=== PATIENT | female | born 1945 | race Caucasian/White ===

== ENCOUNTER 2025-07-28 14:15 | Outpatient (CLI) | payer MEDICARE, SELFPAY ==
--- NOTE | ~2025-07-28 | XR_ITS ---
EXAMINATION: XR knee LT min 4V, 07/28/2025 14:57 CDT HISTORY: PAIN, JOINT, KNEE, LEFT, MEDIAL PO COMPARISON: No comparisons available. Findings: No acute fracture or malalignment. No significant degenerative changes. Soft tissues unremarkable. Impression: No acute fracture or malalignment. Reviewed, dictated and finalized at location A. Impression: No acute fracture or malalignment.
--- OUTSIDE RECORDS SUMMARY | 2025-07-28 14:32 | XMS_ITS | Clinical Summary ---
Author Organization [facility] Address [address] [place] [address] Care Team Providers Care Biological Science Technician Fish Name Role Phone Almas Norris MD Primary Care Provider [phone] Allergies No known active allergies Medications atorvastatin (LIPITOR) 40 MG tablet Take 1 tablet (40 mg total) by mouth daily. 07/31/2023 Active carvedilol (COREG) 12.5 MG tablet Take 1 tablet (12.5 mg total) by mouth 2 (two) times daily. Active spironolactone (ALDACTONE) 25 MG tablet Take 1 tablet (25 mg total) by mouth daily. 08/21/2023 Active valsartan (DIOVAN) 80 MG tablet Take 1 tablet (80 mg total) by mouth daily. 08/21/2023 Active senna-docusate (SENOKOT-S) 8.6-50 MG tablet Take 1 tablet by mouth daily. 60 tablet 1 01/08/2024 Active HYDROcodone-acet aminophen (NORCO) 5-325 MG tabletIndication s:Acute Pain < 7 Day Supply,postop Take 1 tablet by mouth every 6 (six) hours as needed for Pain. Indications : Acute Pain < 7 Day Supply, postop 28 tablet 01/08/2024 Active Active Problems No known active problems Family History Medical History Relation Comments Cancer Brother 1 leukemia Heart Disease Brother 1 Heart Disease Brother 2 Heart Disease Brother 3 Heart Disease Mother Relation Status Comments Brother 1 Brother 2 Brother 3 Brother 4 Alive Brother 5 Alive Mother Social History Tobacco Use Types Packs/Day Years Used Date Smoking Tobacco: Former Cigarettes 1 5 1 970 - 1974 Smokeless Tobacco: Never Tobacco Cessation:Counseling Given: Not Answered Alcohol Use Standard Drinks/Week Comments Not Currently 0 (1 standard drink = 0.6 oz pur e alcohol) Comments No Sex and Gender Information Value Date Recorded Sex Assigned at Not on file Legal Sex Female 8:05 AM MARKING ROOM SUPERVISOR Gender Identity Not on file Sexual Orientation Not on file Last Filed Vital Signs Vital Sign Reading Time Taken Comments Blood Pressure 131/66 01/08/2024 2:17 PM MARKING ROOM SUPERVISOR Pulse 80 01/08/2024 2:17 PM MARKING ROOM SUPERVISOR Temperature 36.1 C (97 F) 01/08/2024 2:17 PM MARKING ROOM SUPERVISOR Respiratory Rate 12 01/08/2024 2:17 PM MARKING ROOM SUPERVISOR Oxygen Saturation 96% 01/08/2024 2:17 PM MARKING ROOM SUPERVISOR Inhaled Oxygen Concentration - - Weight 57.2 kg (126 lb 1.7 oz) 01/08/2024 6:30 A M MARKING ROOM SUPERVISOR Height 149.9 cm (4' 11) 01/08/2024 6:30 AM MARKING ROOM SUPERVISOR Body Mass Index 25.47 01/08/2024 6:30 AM MARKING ROOM SUPERVISOR Plan of Treatment Health Maintenance Due Date Last Done Comments Zoster Vaccines (1 of 2) 02/07/1994 Pneumococcal Vaccine: 50+ Ye ars (2 of 2 - PCV) 02/22/2008 02/21/2007 Annual Medicare Wellness Visit 02/07/2009 Dexa Scan (General) 02/07/2009 RSV Immunization or 60+ Years (1 - 1-dose 75+ series) 02/07/2019 DTaP, Tdap and Td Vaccines ( 2 - Td or Tdap) 07/21/2022 07/21/2012 COVID-19 Vaccine (1 - 2023-2 5 season) 2025 Meningococcal B Vaccine Aged Out No l onger eligible based on patient's age to complete this topic Meningococcal Vaccine Aged Out No kari rei eligible based on patient's age to complete this topic RSV Immunizations Under 20 Months Aged Out No longer eligible based on patient's age to complete this topic Insurance [facility] Care Teams Biological Science Technician Fish Relationship Specialty Start Date End Date Almas Norris MD PCP - General INTERNAL MEDICINE 09/26/23
--- OUTSIDE RECORDS SUMMARY | 2025-07-28 14:32 | XMS_ITS | Clinical Summary ---
Author Organization [facility] [address] [place] [id number] Care Team Providers Care Garage Worker Name Role Phone Almas Norris MD Primary Care Provider [phone] Allergies No known active allergies Medications potassium citrate ER (UROCIT-K) 10 mEq (1,080 mg) CR tablet Take 1 tablet (10 mEq total) by mouth daily Active empagliflozin (JARDIANCE) 10 mg tabletIndication s:Heart Failure Take 1 tablet (10 mg total) by mouth daily 90 tablet 3 02/27/2025 Active carvediloL (COREG) 12.5 mg tablet Take 1 tablet (12.5 mg total) by mouth 2 (two) times a day with meals 180 tablet 3 02/27/2025 Active atorvastatin (LIPITOR) 40 mg tablet Take 1 tablet (40 mg total) by mouth daily 90 tablet 3 02/27/2025 Active furosemide (LASIX) 20 mg tablet Take 1 tablet (20 mg total) by mouth daily 90 tablet 3 03/18/2025 Active valsartan (DIOVAN) 80 mg tablet TAKE 1 TABLET BY MOUTH DAILY 90 tablet 3 05/15/2025 Active spironolactone (ALDACTONE) 25 mg tablet TAKE 1 TABLET BY MOUTH DAILY 90 tablet 3 05/15/2025 Active Active Problems Problem Noted Date Diagnosed Date Type 2 diabetes mellitus with chronic kidney dis ease 03/18/2025 History of colonic polyps 09/02/2024 Encounter for screening colonoscopy 09/02/2024 Dilated cardiomyopathy 01/01/2024 Abnormal stress test 11/27/2023 Chest pain 11/27/2023 Encounter for preoperative a ssessment for noncoronary cardiac surgery 10/31/2023 Claudication 12/08/2022 Atopic rhinitis 04/05/2014 Overview (02/23/2017): ALLERGIC RHINITIS NOS Essential hypertension 04/05/2014 Overview (02/23/2017): BENIGN HYPERTENSION Multiple-type hyperlipidemia 04/05/2014 Overview (02/23/2017): MIXED HYPERLIPIDEMIA Gastroesophageal reflux disease 04/05/2014 Overview (02/23/2017): ESOPHAGEAL REFLUX Congestive heart failure 04/05/2014 Overview (02/24/2017): CHF NOS Immunizations Immunization Administration Dates Next Due Influenza, Split 07/22/2011,08/09/2010 Influenza, Trivalent, IM (MDV) 07/29/2013 Pneumococcal Polysaccharide PPV23 02/21/2007 Tdap 07/21/2012 Surgical History Surgery Date Site/Laterality Comments CHOLECYSTECTOMY 2006 Cholecystectomy BREAST BIOPSY 11/20/2019 Left COLONOSCOPY 11/20/2004 - 11/19/2005 BACK SURGERY COLONOSCOPY 01/02/2025 Medical History Medical History Date Comments IBS (irritable bowel syndrome) HTN (hypertension) GERD (gastroesophageal reflux disease) Adenomatous colon polyp Cardiomyopathy HLD (hyperlipidemia) HFrEF (heart failure with reduced ejection fract ion) Spinal stenosis, lumbar Family History Medical History Relation Name Comments Coronary artery disease Brother 2 Artie nary artery disease; Leukemia Brother 2 Cancer -leukemi a; Car Accident Father MVA; Coronary artery disease Mother Artie nary artery disease, premature; Coronary artery disease Sister Artie nary artery disease; Diabetes type II Sister Diabetes -T ype 2; Relation Name Status Comments Brother 1 Alive Brother 2 Father Mother Sister Social History Tobacco Use Types Packs/Day Years Used Date Smoking Tobacco: Never Tobacco Cessation:Counseling Given: Not Answered Alcohol Use Standard Drinks/Week Comments No 0 (1 standard drink = 0.6 oz pur e alcohol) AUDIT-C Answer Date Recorded Q1: How often do you have a drink containing alcohol? Never 01/02/2025 Q2: How many drinks containi ng alcohol do you have on a typical day when you are drinking? Patient does not drink Frequency of Binge Drinking Not on file 12/21 Personal Safety Answer Date Recorded Have you ever been in or are you currently in a harmful physical or emotional relationship or is someone making you feel afraid or unsafe? Denies 01/02/2025 Comments Unknown Sex and Gender Information Value Date Recorded Sex Assigned at Not on file Legal Sex Female 11:59 PM ROCKET ENGINE MECHANIC Gender Identity Not on file Sexual Orientation Not on file Obstetrics History Para Term AB IAB SAB Ectopic Multiple Livin g Live Births 2 2 2 Date Outcome GA Total Labor Labor/12/23 Weight Sex Type Anes PTL Becky A1 A5 Name Clin Term Term Last Filed Vital Signs Vital Sign Reading Time Taken Comments Blood Pressure 149/83 03/18/2025 8:19 AM CDT Pulse 82 03/18/2025 8:19 AM CDT Temperature 36.6 C (97.8 F) 01/02/2025 9:56 AM ROCKET ENGINE MECHANIC Respiratory Rate 18 03/18/2025 8:19 AM CDT Oxygen Saturation 97% 01/02/2025 9:56 AM ROCKET ENGINE MECHANIC Inhaled Oxygen Concentration - - Weight 60.8 kg (134 lb) 03/18/2025 8:19 AM CDT Height 149.9 cm (4' 11) 03/18/2025 8:19 AM CDT Body Mass Index 27.06 03/18/2025 8:19 AM CDT Plan of Treatment Health Maintenance Due Date Last Done Comments Albumin Creatinine Ratio, Urine 1944 Depression Screening 1944 Osteoporosis Screening-Bone Density Scan 1944 Dilated Eye Exam 1944 Foot Exam 1944 Hepatitis B Screening 02/07/1962 Zoster Vaccine (1 of 2) 02/07/1994 Pneumococcal vaccine 65+ (2 of 2 - PCV) 02/22/2008 02/21/2007 Well Visit 65+ 02/07/2009 DTaP/Tdap/Td Vaccine (2 - Td or Tdap) 07/21/2022 07/21/2012 Hemoglobin A1C 07/16/2024 01/16/2024 Fall Risk Assessment 12/19/2024 12/19/2023 eGFR 07/01/2025 07/01/2024, 12/22, 12/01/2023 Influenza Vaccine (#1) 2025 , 07/29/2013, 07/22/2011, Additional history exists Lipid Panel 03/18/2026 03/18/2025, 12/22, 08/01/2016, Additional history exists Medical Devices Implanted Type Area Maintenance Mechanic Engine Device Identifier Shelf Expiration Date Model / Serial / Lot ActualMeds Angio-Seal Vip 6fr Closere Device [id number] - [id number] Implanted:Qty: 1 on 12/19/2023 by Taya Gilliam MD at [facility] Other - see comments ActualMeds 09/19/2024 [id number] / / [id number] Procedures Procedure Name Priority Date/Time Associated Diagnosis Comments LIPID PANEL Routine 03/18/2025 9:09 AM CDT Multiple-type hyperlipidemia EGFR Routine 07/01/2024 1:30 PM CDT Essential hypertension HEMOGLOBIN A1C Routine 01/16/2024 10:45 AM ROCKET ENGINE MECHANIC Diabetes mellitus type II, non insulin dependent (HCC) from Last 3 Months or Most Recently Relevant to Health Maintenance Results * Lipid panel (03/18/2025 9:09 AM CDT) Cholesterol 135 30 - 199 mg/dL Comment: Interpretive Data Ages < or = 19 years Acceptable: <170 mg/dL Borderline high: 170-199 mg/dL High: >or= 200 mg/dL Ages > or = 20 years Desirable: <200 mg/dL Borderline high: 200-239 mg/dL High: >or= 240 mg/dL Literature References: 1. Expert Panel on Integrated Guidelines for Cardiovascular Health and Risk Reduction in Children and Adolescents. Pediatrics 2011;128:S213 2. NCEP Expert Panel. Circulation 2004;110:227 Current Interpretive Data was last revised on 2018. Triglycerides 137 <=149 mg/dL [facility] [place]) Comment: Interpretive Data Ages < or = 9 years Acceptable: <75 mg/dL Borderline high: 75-99 mg/dL High: >or= 100 mg/dL Ages 10 to 20 years Acceptable: <90 mg/dL Borderline high: 90-129 mg/dL High: >or= 130 mg/dL Ages > or = 20 years Desirable: <150 mg/dL Borderline high: 150-199 mg/dL High: 200-499 mg/dL Very high: >or= 499 mg/dL Literature References: 1. Expert Panel on Integrated Guidelines for Cardiovascular Health and Risk Reduction in Children and Adolescents. Pediatrics 2011;128:S213 2. NCEP Expert Panel. Circulation 2004;110:227 Current Interpretive Data was last revised on 2018. HDL 44 >=40 mg/dL [facility] [place]) Comment: Interpretive Data Ages < or = 19 years Acceptable: >45 mg/dL Borderline low: 40-45 mg/dL Low: <40 mg/dL Ages > or = 20 years Desirable: >or= 60 mg/dL Low: <40 mg/dL Literature References: 1. Expert Panel on Integrated Guidelines for Cardiovascular Health and Risk Reduction in Children and Adolescents. Pediatrics 2011;128:S213 2. NCEP Expert Panel. Circulation 2004;110:227 Current Interpretive Data was last revised on 2018. LDL, calculated 67 <=129 mg/dL [facility]) Comment: Interpretive Data Ages < or = 19 years Acceptable: <110 mg/dL Borderline high: 110-129 mg/dL High: >or= 130 mg/dL Ages > or = 20 years Optimal: <100 mg/dL Near optimal: 100-129 mg/dL Borderline high: 130-159 mg/dL High: >160 mg/dL Calculated using the [place] LDL-C estimating equation. This equation was implemented on 2024. Prior to this date LDL-C was estimated using the Friedewald equation. Literature References: 1. Expert Panel on Integrated Guidelines for Cardiovascular Health and Risk Reduction in Children and Adolescents. Pediatrics 2011;128:S213 2. NCEP Expert Panel. Circulation 2004;110:227 3. [place] Xie al. ROMEO Cardiol. 2020 March 20;5(5):540-548. doi: 10.1001/[email or web address] Current Interpretive Data was last revised on 2024. Non-HDL Cholesterol 91 mg/dL [facility] ([place]) Comment: Interpretive Data Ages < or = 19 years Acceptable: <120 mg/dL Borderline high: 120-144 mg/dL High: >145 mg/dL Ages > or = 20 years When triglycerides are >200 mg/dL, Non-HDL cholesterol is a secondary target of therapy with treatment goals that are 30 mg/dL greater than the LDL cholesterol target. Literature References: 1. Expert Panel on Integrated Guidelines for Cardiovascular Health and Risk Reduction in Children and Adolescents. Pediatrics 2011;128:S213 2. NCEP Expert Panel. Circulation 2004;110:227 Current Interpretive Data was last revised on 2018. Chol/HDL ratio 3 [facility] ([place]) Blood 03/18/2025 9:09 AM CDT 03/18/2025 9:18 AM CDT Sophie Ackerman NP LAB BLOOD ORDERABLES nal Result [facility] ([place]) 1 [facility] [place] [address] * (ABNORMAL) eGFR (07/01/2024 1:30 PM CDT) eGFR 59(L) >=60 mL/min/1. 73 m2 Comment: Interpretive Data Reference Interval Normal >/= 90 mL/min/1.73m2 Mildly decreased* 60 - 89 mL/min/1.73m2 Mildly to moderately decreased 45 - 59 mL/min/1.73m2 Moderately to severely decreased 30 - 44 mL/min/1.73m2 Severely decreased 15 - 29 mL/min/1.73m2 Kidney Failure < 15 mL/min/1.73m2 *Relative to young adult level Estimated glomerular filtration rate is determined by the 2020 CKD-EPI equation recommended by the National Kidney Foundation (A Unifying Approach to GFR Estimation: Recommendations of the NKF-ASK Task Force on Reassessing the Inclusion of Race in Diagnosing Kidney Disease, JASN 2020). The CKD-EPI equation should not be used for patients with unstable renal function and has not been validated in children and those over 70. Current interpretive data was last reviewed 2021. Blood 07/01/2024 1:30 PM CDT 07/01/2024 2:00 PM CDT Geremias Matos MD LAB BLOOD ORDERABLES Final Resu lt [facility] ([place]) [facility] [place] [address] * (ABNORMAL) Hemoglobin A1c (01/16/2024 10:45 AM ROCKET ENGINE MECHANIC) Hgb A1C 5.7(H) 4.0 - 5.6 % [facility]) Estimated Average Glucose 117 mg/dL [facility] Comment: The ADA recommends reporting an estimated Average Glucose (eAG) with all Hemoglobin A1c results using the equation derived from a study of 507 normal and diabetic adults. Minority populations were underrepresented and children were not included. (Diabetes Care 31:9886-0407, 2008). The eAG is not equivalent to a fasting glucose. Blood 01/16/2024 10:4 5 AM ROCKET ENGINE MECHANIC 01/16/2024 11:19 AM ROCKET ENGINE MECHANIC Geremias Matos MD LAB BLOOD ORDERABLES Final Resu lt [facility] ([place]) [address] [facility] [place] [address] from Last 3 Months or Most Recently Relevant to Health Maintenance Insurance [facility] MEDICARE ADVANTAGE [facility] MED[employer]V[facility]AGE Advance Directives For more information, please contact: [phone] * Full Code (Latest Code Status on File) Date Activated Date Inactivated Comments 01/02/2025 7:19 AM 01/02/2025 2:12 PM * Full Code Date Activated Date Inactivated Comments 01/02/2025 7:19 AM 01/02/2025 7:19 AM * Full Code Date Activated Date Inactivated Comments 12/19/2023 10:11 AM 12/19/2023 5:10 PM Care Teams Garage Worker Relationship Specialty Start Date End Date Almas Norris MD PCP - General Internal Medicine 06/06/22
== END 2025-07-28 14:16 | disposition home or self-care (01) ==
PROVIDERS: PCP Internal Medicine; Visit Provider Internal Medicine
DX: M25.562 Pain in left knee (principal)
CPT/HCPCS: 73564

== ENCOUNTER 2025-08-22 08:14 | Outpatient (CLI) | payer MEDICARE, SELFPAY ==
--- NOTE | ~2025-08-22 | US_ITS ---
EXAMINATION: US soft tissue LE DATE: 08/22/2025 09:10 INDICATION: Left knee pain TECHNIQUE: Multiple grayscale ultrasound images of the region of concern posterior to the left knee were obtained. COMPARISON: None FINDINGS: Popliteal artery and vein are normal in caliber. No Ferreira's cyst or other abnormal masses at the left popliteal fossa. IMPRESSION: 1. No Ferreira's cyst or other evident abnormality at the left popliteal fossa. Reviewed, dictated and finalized at location A.
--- OUTSIDE RECORDS SUMMARY | 2025-08-22 08:22 | XMS_ITS | Data Portability ---
Author Organization [place] [facility] [place], Main Office Address [address] [place] [address] Assessment Encounter Date Assessment Date Assessment LastModified by Organization Details LastModified Time 05/19/2023 05/19/2023 Diagnosis in the assessment plan have been discussed she needs a surgical consultation I will arrange for that follow-up with me in 4 months Not available 05/20/2023 14:22:57 07/07/2023 07/07/2023 Normal sinus rhythm bundle left bundle-branch block blood work reviewed clear cleared for cataract surgery keep regular follow-up [email or web address] Not available 07/07/2023 15:31:35 10/16/2023 10/16/2023 EKG sinus rhythm with LBBB She is seeing cardiology next week From my standpoint is lungs are blood work is fine she is medically optimized [email or web address] Not available 10/16/2023 23:04:05 Plan of Treatment Reminders Order Date Submit Date Provider Last Modified By Organization Details Last Modified Time Details Appointments None recorded. Lab CBC w/ auto diff 2022 023 [facility] (Lab), [address] [place], [address], 3 13:54:04 lipid panel, serum 2022 023 [facility] (Lab), [address] [place], [address], 3 15:10:09 CMP, serum or plasma 2022 023 [facility] (Lab), [address] [place], [address], 15:10:06 Referral None recorded. Procedures None recorded. Surgeries None recorded. Imaging electrocard iogram 2022 023 [email or web address] [facility] [address], [place], [address], 17:59:46 electrocard iogram 2022 023 [email or web address] [facility] [address], [place], [address], 15:31:51 Medication Orders benzonatate 200 mg capsule 2022 023 CELESTE [facility], [facility] [address], [facility] [address], [place], [place], [id number], 15:31:53 Patient TargetsNo targets recorded. Patient InstructionsNo instructions recorded. Reason for Referral None Reported. Results Created Date Observation Date Name Description Value Unit Range Abnormal Flag Note LastModifiedBy Organization Detail LastModifiedTime 05/19/2005/19/2023 CBC/C OMPLE TE BLD COUNT W/DIF F white blood cells 5.4 x10'3 /uL 4.2-10 .8 Not Available [facility] (Lab) [address] [place], [address], 05/19/2023 15:08:44 05/19/20 23 05/19/2023 CBC/C OMPLE TE BLD COUNT W/DIF F red blood cells 4.71 x10'6 /uL 3.80-5 .20 Not Available [facility] (Lab) [address] [place], [address], 05/19/2023 15:08:44 05/19/20 23 05/19/2023 CBC/C OMPLE TE BLD COUNT W/DIF F hemoglobin 14.2 g/dL 12.0-1 5.6 Not Available [facility] (Lab) [address] [place], [address], 05/19/2023 15:08:44 05/19/20 23 05/19/2023 CBC/C OMPLE TE BLD COUNT W/DIF F hematocrit 44.3 % 35.7-4 5.7 Not Available [facility] (Lab) [address] [place], [address], 05/19/2023 15:08:44 05/19/20 23 05/19/2023 CBC/C OMPLE TE BLD COUNT W/DIF F mean red cell volume 94.1 fL 82.0-9 9.0 Not Available [facility] (Lab) [address] [place], [address], 05/19/2023 15:08:44 05/19/20 23 05/19/2023 CBC/C OMPLE TE BLD COUNT W/DIF F mean red cell hemoglobin 30.1 pg 27.0-3 3.0 Not Available [facility] (Lab) [address] [place], [address], 05/19/2023 15:08:44 05/19/20 23 05/19/2023 CBC/C OMPLE TE BLD COUNT W/DIF F mean RBC HGB concentratio n 32.1 g/dL 31.0-3 6.0 Not Available [facility] (Lab) [address] [place], [address], 05/19/2023 15:08:44 05/19/20 23 05/19/2023 CBC/C OMPLE TE BLD COUNT W/DIF F red cell distribution width 12.9 % 11.8-1 5.5 Not Available [facility] (Lab) [address] [place], [address], 05/19/2023 15:08:44 05/19/20 23 05/19/2023 CBC/C OMPLE TE BLD COUNT W/DIF F platelets 229 x10'3 /uL 150-40 0 Not Available [facility] (Lab) [address] [place], [address], 05/19/2023 15:08:44 05/19/20 23 05/19/2023 CBC/C OMPLE TE BLD COUNT W/DIF F mean platelet volume 10.7 fL 9.0-12 .4 Not Available [facility] (Lab) [address] [place], [address], 05/19/2023 15:08:44 05/19/20 23 05/19/2023 CBC/C OMPLE TE BLD COUNT W/DIF F neutrophils 62.8 % 39.0-7 2.0 Not Available [facility] (Lab) [address] [place], [address], 05/19/2023 15:08:44 05/19/20 23 05/19/2023 CBC/C OMPLE TE BLD COUNT W/DIF F lymphocytes 26.1 % 16.0-4 7.0 Not Available [facility] (Lab) [address] [place], [address], 05/19/2023 15:08:44 05/19/20 23 05/19/2023 CBC/C OMPLE TE BLD COUNT W/DIF F monocytes 6.8 % 5.0-12 .0 Not Available [facility] (Lab) [address] [place], [address], 05/19/2023 15:08:44 05/19/20 23 05/19/2023 CBC/C OMPLE TE BLD COUNT W/DIF F eosinophils 2.6 % 1.0-7. 0 Not Available [facility] (Lab) [address] [place], [address], 05/19/2023 15:08:44 05/19/20 23 05/19/2023 CBC/C OMPLE TE BLD COUNT W/DIF F basophils 1.1 % 0.0-2. 0 Not Available [facility] (Lab) [address] [place], [address], 05/19/2023 15:08:44 05/19/20 23 05/19/2023 CBC/C OMPLE TE BLD COUNT W/DIF F immature granulocytes 0.6 % 0.00-0 .50 high Not Available [facility] (Lab) [address] [place], [address], 05/19/2023 15:08:44 05/19/20 23 05/19/2023 CBC/C OMPLE TE BLD COUNT W/DIF F neutrophils, absolute count 3.42 x10'3 /uL 1.5-8. 0 Not Available [facility] (Lab) [address] [place], [address], 05/19/2023 15:08:44 05/19/20 23 05/19/2023 CBC/C OMPLE TE BLD COUNT W/DIF F lymphocytes, absolute count 1.42 x10'3 /uL 1.07-3 .43 Not Available [facility] (Lab) [address] [place], [address], 05/19/2023 15:08:44 05/19/20 23 05/19/2023 CBC/C OMPLE TE BLD COUNT W/DIF F monocytes, absolute count 0.37 x10'3 /uL 0.29-0 .99 Not Available [facility] (Lab) [address] [place], [address], 05/19/2023 15:08:44 05/19/20 23 05/19/2023 CBC/C OMPLE TE BLD COUNT W/DIF F eosinophils, absolute count 0.14 x10'3 /uL 0.02-0 .53 Not Available [facility] (Lab) [address] [place], [address], 05/19/2023 15:08:44 05/19/20 23 05/19/2023 CBC/C OMPLE TE BLD COUNT W/DIF F basophils, absolute count 0.06 x10'3 /uL 0.01-0 .08 Not Available [facility] (Lab) [address] [place], [address], 05/19/2023 15:08:44 05/19/20 23 05/19/2023 CBC/C OMPLE TE BLD COUNT W/DIF F immature granulocytes ,absolute 0.03 x10'3 /uL 0.00-0 .05 Not Available [facility] (Lab) [address] [place], [address], 05/19/2023 15:08:44 05/19/20 23 05/19/2023 CBC/C OMPLE TE BLD COUNT W/DIF F nucleated red blood cells 0.0 % -0 Not Available [facility] (Lab) [address] [place], [address], 05/19/2023 15:08:44 05/19/20 23 05/19/2023 CBC/C OMPLE TE BLD COUNT W/DIF F NRBC# 0.00 x10'3 /uL Not Available [facility] (Lab) [address] [place], [address], 05/19/2023 15:08:44 05/19/20 23 05/19/2023 COMPR EHENS KALIE METAB OLIC PANEL sodium 142 mmol/ L 137-14 5 Not Available [facility] (Lab) [address] [place], [address], 05/19/2023 16:19:25 05/19/20 23 05/19/2023 COMPR EHENS KALIE METAB OLIC PANEL potassium 4.6 mmol/ L 3.5-5. 1 Not Available [facility] (Lab) [address] [place], [address], 05/19/2023 16:19:25 05/19/20 23 05/19/2023 COMPR EHENS KALIE METAB OLIC PANEL chloride 104 mmol/ L 98-107 Not Available [facility] (Lab) [address] [place], [address], 05/19/2023 16:19:25 05/19/20 23 05/19/2023 COMPR EHENS KALIE METAB OLIC PANEL carbon dioxide 28 mmol/ L 22-30 Not Available [facility] (Lab) [address] [place], [address], 05/19/2023 16:19:25 05/19/20 23 05/19/2023 COMPR EHENS KALIE METAB OLIC PANEL anion gap 14.6 mmol/ L 14-22 Not Available [facility] (Lab) [address] [place], [address], 05/19/2023 16:19:25 05/19/20 23 05/19/2023 COMPR EHENS KALIE METAB OLIC PANEL glucose 95 mg/dL 70-99 Not Available [facility] (Lab) [address] [place], [address], 05/19/2023 16:19:25 05/19/20 23 05/19/2023 COMPR EHENS KALIE METAB OLIC PANEL BUN 25 mg/dL 8-19 high Not Available [facility] (Lab) [address] [place], [address], 05/19/2023 16:19:25 05/19/20 23 05/19/2023 COMPR EHENS KALIE METAB OLIC PANEL creatinine 0.94 mg/dL 0.66-1 .25 Not Available [facility] (Lab) [address] [place], [address], 05/19/2023 16:19:25 05/19/20 23 05/19/2023 COMPR EHENS KALIE METAB OLIC PANEL GFR 57 Refer ence Range : Robson ge GFR Healt hy Adult : >60 mL/mi n/1.7 3 m2 Chron ic Kidne y Disea se: 15-60 mL/mi n/1.7 3 m2 Kidne y Failu re: <15/m L/min /1.73 m2 www.n iddk. nih.g ov The MDRD study equat ion has not been valid ated in child ariana <18 years of age; pregn ant women ; the elder ly >85 years of age; or in some racia l or ethni c subgr oups, such as Hispa nics. Outsi de the valid ated julieta eters , estim ated GFR is less accur ate, requi ring clini jay judgm ent on a case- by-ca se basis . Clini jay inter preta tion for other races and ages must be made by the clini reece. The MDRD study equat ion has not been valid ated for the evalu ation of serum creat inine relat ed to nutri chantal l statu s or medic ation usage . For perso ns <18 years of age, a pedia tric GFR calcu lator is avail able on the [facility] websi te: https ://felisha w.kid young.o rg/pr ofess ional s/kdo qi/gf r_cal culat or Not Available [facility] (Lab) [address] [place], [address], 05/19/2023 16:19:25 05/19/20 23 05/19/2023 COMPR EHENS KALIE METAB OLIC PANEL alkaline phosphatase 112 U/L 38-126 Not Available [facility] (Lab) [address] [place], [address], 05/19/2023 16:19:25 05/19/20 23 05/19/2023 COMPR EHENS KALIE METAB OLIC PANEL alanine aminotransfe rase 17 U/L 0-35 Not Available [facility] (Lab) [address] [place], [address], 05/19/2023 16:19:25 05/19/20 23 05/19/2023 COMPR EHENS KALIE METAB OLIC PANEL aspartate aminotransfe rase 23 U/L 15-37 Not Available [facility] (Lab) [address] [place], [address], 05/19/2023 16:19:25 05/19/20 23 05/19/2023 COMPR EHENS KALIE METAB OLIC PANEL bilirubin, total 0.70 mg/dL 0.20-1 .30 Not Available [facility] (Lab) [address] [place], [address], 05/19/2023 16:19:25 05/19/20 23 05/19/2023 COMPR EHENS KALIE METAB OLIC PANEL calcium 9.4 mg/dL 8.4-10 .2 Not Available [facility] (Lab) [address] [place], [address], 05/19/2023 16:19:25 05/19/20 23 05/19/2023 COMPR EHENS KALIE METAB OLIC PANEL total protein 6.7 g/dL 6.3-8. 2 Not Available [facility] (Lab) [address] [place], [address], 05/19/2023 16:19:25 05/19/20 23 05/19/2023 COMPR EHENS KALIE METAB OLIC PANEL albumin 4.0 g/dL 3.0-4. 4 Not Available [facility] (Lab) [address] [place], [address], 05/19/2023 16:19:25 05/19/20 23 05/19/2023 COMPR EHENS KALIE METAB OLIC PANEL globulin 2.7 g/dL 2.6-4. 2 Not Available [facility] (Lab) [address] [place], [address], 05/19/2023 16:19:25 05/19/20 23 05/19/2023 COMPR EHENS KALIE METAB OLIC PANEL A/G ratio 1.5 ratio 1.0-2. 0 Not Available [facility] (Lab) [address] [place], [address], 05/19/2023 16:19:25 05/19/20 23 05/19/2023 LIPID PANEL cholesterol 142 mg/dL 140-19 9 NIH JENA NSUS RECOM MENDA TION FOR LEONA STERO L: ADULT CHILD LOW RISK: <200 <170 BORDE RLINE : <200- 239 ----- HIGH RISK: >240 >200 Not Available [facility] (Lab) [address] [place], [address], 05/19/2023 16:19:29 05/19/20 23 05/19/2023 LIPID PANEL triglyceride s 100 mg/dL 0-150 NIH JENA NSUS REPOR T RECOM MENDA TION FOR TRIGL YCERI AUGUSTA: ADULT CHILD LOW RISK: <150 ----- BODER LINE: 150-1 99 ----- HIGH RISK: >200 ----- Not Available [facility] (Lab) [address] [place], [address], 05/19/2023 16:19:29 05/19/20 23 05/19/2023 LIPID PANEL HDL cholesterol 49 mg/dL 40- Not Available [facility] (Lab) [address] [place], [address], 05/19/2023 16:19:29 05/19/20 23 05/19/2023 LIPID PANEL LDL cholesterol, calculated 73 mg/dL 0-130 NIH JENA NSUS REPOR T RECOM MENDA TIONS FOR LDL: ADULT CHILD LOW RISK <130 <110 (OPTI MAL LDL) <100 ----- BORDE RLINE : 130-1 59 ----- HIGH RISK: >160 >130 A TRIGL YCERI DE RESUL T >400 INVAL IDATE S THE CALCU LATIO N FOR LDL FRACT IONAT ION - THE LDL RESUL T WILL NOT BE REPOR [place]. Not Available [facility] (Lab) [address] [place], [address], 05/19/2023 16:19:29 10/18/20 23 10/18/2023 CBC/C OMPLE TE BLD COUNT W/DIF F white blood cells 5.7 x10'3 /uL 4.2-10 .8 Not Available [facility] (Lab) [address] [place], [address], 10/18/2023 13:54:04 10/18/20 23 10/18/2023 CBC/C OMPLE TE BLD COUNT W/DIF F red blood cells 4.37 x10'6 /uL 3.80-5 .20 Not Available [facility] (Lab) [address] [place], [address], 10/18/2023 13:54:04 10/18/2010/18/2023 CBC/C OMPLE TE BLD COUNT W/DIF F hemoglobin 13.6 g/dL 12.0-1 5.6 Not Available [facility] (Lab) [address] [facility] [place], [address], 10/18/2023 13:54:04 10/18/20 23 10/18/2023 CBC/C OMPLE TE BLD COUNT W/DIF F hematocrit 41.9 % 35.7-4 5.7 Not Available [facility] (Lab) [address] [place], [address], 10/18/2023 13:54:04 10/18/2010/18/2023 CBC/C OMPLE TE BLD COUNT W/DIF F mean red cell volume 95.9 fL 82.0-9 9.0 Not Available [facility] (Lab) [address] [place], [address], 10/18/2023 13:54:04 10/18/20 23 10/18/2023 CBC/C OMPLE TE BLD COUNT W/DIF F mean red cell hemoglobin 31.1 pg 27.0-3 3.0 Not Available [facility] (Lab) [address] [place], [address], 10/18/2023 13:54:04 10/18/20 23 10/18/2023 CBC/C OMPLE TE BLD COUNT W/DIF F mean RBC HGB concentratio n 32.5 g/dL 31.0-3 6.0 Not Available [facility] (Lab) [address] [facility] [place], [address], 10/18/2023 13:54:04 10/18/20 23 10/18/2023 CBC/C OMPLE TE BLD COUNT W/DIF F red cell distribution width 12.8 % 11.8-1 5.5 Not Available [facility] (Lab) [address] [place], [address], 10/18/2023 13:54:04 10/18/20 23 10/18/2023 CBC/C OMPLE TE BLD COUNT W/DIF F platelets 213 x10'3 /uL 150-40 0 Not Available [facility] (Lab) [address] [facility] [place], [address], 10/18/2023 13:54:04 10/18/20 23 10/18/2023 CBC/C OMPLE TE BLD COUNT W/DIF F mean platelet volume 10.7 fL 9.0-12 .4 Not Available [facility] (Lab) [address] [place], [address], 10/18/2023 13:54:04 10/18/20 23 10/18/2023 CBC/C OMPLE TE BLD COUNT W/DIF F neutrophils 65.2 % 39.0-7 2.0 Not Available [facility] (Lab) [address] [place], [address], 10/18/2023 13:54:04 10/18/20 23 10/18/2023 CBC/C OMPLE TE BLD COUNT W/DIF F lymphocytes 23.0 % 16.0-4 7.0 Not Available [facility] (Lab) [address] [place], [address], 10/18/2023 13:54:04 10/18/2010/18/2023 CBC/C OMPLE TE BLD COUNT W/DIF F monocytes 7.6 % 5.0-12 .0 Not Available [facility] (Lab) [address] [place], [address], 10/18/2023 13:54:04 10/18/2010/18/2023 CBC/C OMPLE TE BLD COUNT W/DIF F eosinophils 2.3 % 1.0-7. 0 Not Available [facility] (Lab) [address] [place], [address], 10/18/2023 13:54:04 10/18/2010/18/2023 CBC/C OMPLE TE BLD COUNT W/DIF F basophils 1.4 % 0.0-2. 0 Not Available [facility] (Lab) [address] [place], [address], 10/18/2023 13:54:04 10/18/2010/18/2023 CBC/C OMPLE TE BLD COUNT W/DIF F immature granulocytes 0.5 % 0.00-0 .50 Not Available [facility] (Lab) [address] [place], [address], 10/18/2023 13:54:04 10/18/2010/18/2023 CBC/C OMPLE TE BLD COUNT W/DIF F neutrophils, absolute count 3.69 x10'3 /uL 1.5-8. 0 Not Available [facility] (Lab) [address] [place], [address], 10/18/2023 13:54:04 10/18/20 23 10/18/2023 CBC/C OMPLE TE BLD COUNT W/DIF F lymphocytes, absolute count 1.30 x10'3 /uL 1.07-3 .43 Not Available [facility] (Lab) [address] [place], [address], 10/18/2023 13:54:04 10/18/2010/18/2023 CBC/C OMPLE TE BLD COUNT W/DIF F monocytes, absolute count 0.43 x10'3 /uL 0.29-0 .99 Not Available [facility] (Lab) [address] [place], [address], 10/18/2023 13:54:04 10/18/20 23 10/18/2023 CBC/C OMPLE TE BLD COUNT W/DIF F eosinophils, absolute count 0.13 x10'3 /uL 0.02-0 .53 Not Available [facility] (Lab) [address] [place], [address], 10/18/2023 13:54:04 10/18/2010/18/2023 CBC/C OMPLE TE BLD COUNT W/DIF F basophils, absolute count 0.08 x10'3 /uL 0.01-0 .08 Not Available [facility] (Lab) [address] [place], [address], 10/18/2023 13:54:04 10/18/2010/18/2023 CBC/C OMPLE TE BLD COUNT W/DIF F immature granulocytes ,absolute 0.03 x10'3 /uL 0.00-0 .05 Not Available [facility] (Lab) [address] [place], [address], 10/18/2023 13:54:04 10/18/20 23 10/18/2023 CBC/C OMPLE TE BLD COUNT W/DIF F nucleated red blood cells 0.0 % -0 Not Available [facility] (Lab) [address] [place], [address], 10/18/2023 13:54:04 10/18/20 23 10/18/2023 CBC/C OMPLE TE BLD COUNT W/DIF F NRBC# 0.00 x10'3 /uL Not Available [facility] (Lab) [address] [place], [address], 10/18/2023 13:54:04 10/18/20 23 10/18/2023 COMPR EHENS KALIE METAB OLIC PANEL sodium 142 mmol/ L 137-14 5 Not Available [facility] (Lab) [address] [place], [address], 10/18/2023 15:10:06 10/18/20 23 10/18/2023 COMPR EHENS KALIE METAB OLIC PANEL potassium 3.9 mmol/ L 3.5-5. 1 Not Available [facility] (Lab) [address] [place], [address], 10/18/2023 15:10:06 10/18/20 23 10/18/2023 COMPR EHENS KALIE METAB OLIC PANEL chloride 108 mmol/ L 98-107 high Not Available [facility] (Lab) [address] [place], [address], 10/18/2023 15:10:06 10/18/20 23 10/18/2023 COMPR EHENS KALIE METAB OLIC PANEL carbon dioxide 24 mmol/ L 22-30 Not Available [facility] (Lab) [address] [place], [address], 10/18/2023 15:10:06 10/18/20 23 10/18/2023 COMPR EHENS KALIE METAB OLIC PANEL anion gap 13.9 mmol/ L 14-22 low Not Available [facility] (Lab) [address] [place], [address], 10/18/2023 15:10:06 10/18/20 23 10/18/2023 COMPR EHENS KALIE METAB OLIC PANEL glucose 103 mg/dL 70-99 high Not Available [facility] (Lab) [address] [place], [address], 10/18/2023 15:10:06 10/18/20 23 10/18/2023 COMPR EHENS KALIE METAB OLIC PANEL BUN 27 mg/dL 8-19 high Not Available [facility] (Lab) [address] [place], [address], 10/18/2023 15:10:06 10/18/20 23 10/18/2023 COMPR EHENS KALIE METAB OLIC PANEL creatinine 1.21 mg/dL 0.66-1 .25 Not Available [facility] (Lab) [address] [place], [address], 10/18/2023 15:10:06 10/18/20 23 10/18/2023 COMPR EHENS KALIE METAB OLIC PANEL GFR 43 Refer ence Range : Robson ge GFR Healt hy Adult : >60 mL/mi n/1.7 3 m2 Chron ic Kidne y Disea se: 15-60 mL/mi n/1.7 3 m2 Kidne y Failu re: <15/m L/min /1.73 m2 www.n iddk. nih.g ov The MDRD study equat ion has not been valid ated in child ariana <18 years of age; pregn ant women ; the elder ly >85 years of age; or in some racia l or ethni c subgr oups, such as [facility] nics. Outsi de the valid ated julieta eters , estim ated GFR is less accur ate, requi ring clini jay judgm ent on a case- by-ca se basis . Clini jay inter preta tion for other races and ages must be made by the clini reece. The MDRD study equat ion has not been valid ated for the evalu ation of serum creat inine relat ed to nutri chantal l statu s or medic ation usage . For perso ns <18 years of age, a pedia tric GFR calcu lator is avail able on the [facility] websi te: https ://felisha w.jared vidal.o rg/pr ofess ional s/kdo qi/gf r_cal culat or Not Available [facility] (Lab) [address] [place], [address], 10/18/2023 15:10:06 10/18/20 23 10/18/2023 COMPR EHENS KALIE METAB OLIC PANEL alkaline phosphatase 102 U/L 38-126 Not Available [facility] (Lab) [address] [place], [address], 10/18/2023 15:10:06 10/18/20 23 10/18/2023 COMPR EHENS KALIE METAB OLIC PANEL alanine aminotransfe rase 11 U/L 0-35 Not Available [facility] (Lab) [address] [place], [address], 10/18/2023 15:10:06 10/18/20 23 10/18/2023 COMPR EHENS KALIE METAB OLIC PANEL aspartate aminotransfe rase 19 U/L 15-37 Not Available [facility] (Lab) [address] [place], [address], 10/18/2023 15:10:06 10/18/20 23 10/18/2023 COMPR EHENS KALIE METAB OLIC PANEL bilirubin, total 0.40 mg/dL 0.20-1 .30 Not Available [facility] (Lab) [address] [place], [address], 10/18/2023 15:10:06 10/18/20 23 10/18/2023 COMPR EHENS KALIE METAB OLIC PANEL calcium 9.6 mg/dL 8.4-10 .2 Not Available [facility] (Lab) [address] [place], [address], 10/18/2023 15:10:06 10/18/20 23 10/18/2023 COMPR EHENS KALIE METAB OLIC PANEL total protein 6.5 g/dL 6.3-8. 2 Not Available [facility] (Lab) [address] [place], [address], 10/18/2023 15:10:06 10/18/20 23 10/18/2023 COMPR EHENS KALIE METAB OLIC PANEL albumin 4.0 g/dL 3.0-4. 4 Not Available [facility] (Lab) [address] [place], [address], 10/18/2023 15:10:06 10/18/20 23 10/18/2023 COMPR EHENS KALIE METAB OLIC PANEL globulin 2.5 g/dL 2.6-4. 2 low Not Available [facility] (Lab) [address] [place], [address], 10/18/2023 15:10:06 10/18/20 23 10/18/2023 COMPR EHENS KALIE METAB OLIC PANEL A/G ratio 1.6 ratio 1.0-2. 0 Not Available [facility] (Lab) [address] [place], [address], 10/18/2023 15:10:06 10/18/20 23 10/18/2023 LIPID PANEL cholesterol 148 mg/dL 140-19 9 NIH JENA NSUS RECOM MENDA TION FOR LEONA STERO L: ADULT CHILD LOW RISK: <200 <170 BORDE RLINE : <200- 239 ----- HIGH RISK: >240 >200 Not Available [facility] (Lab) [address] [place], [address], 10/18/2023 15:10:09 10/18/20 23 10/18/2023 LIPID PANEL triglyceride s 168 mg/dL 0-150 high NIH JENA NSUS REPOR T RECOM MENDA TION FOR TRIGL YCERI AUGUSTA: ADULT CHILD LOW RISK: <150 ----- BODER LINE: 150-1 99 ----- HIGH RISK: >200 ----- Not Available [facility] (Lab) [address] [place], [address], 10/18/2023 15:10:09 10/18/20 23 10/18/2023 LIPID PANEL HDL cholesterol 47 mg/dL 40- Not Available [facility] (Lab) [address] [place], [address], 10/18/2023 15:10:09 10/18/20 23 10/18/2023 LIPID PANEL LDL cholesterol, calculated 67 mg/dL 0-130 NIH JENA NSUS REPOR T RECOM MENDA TIONS FOR LDL: ADULT CHILD LOW RISK <130 <110 (OPTI MAL LDL) <100 ----- BORDE RLINE : 130-1 59 ----- HIGH RISK: >160 >130 A TRIGL YCERI DE RESUL T >400 INVAL IDATE S THE CALCU LATIO N FOR LDL FRACT IONAT ION - THE LDL RESUL T WILL NOT BE REPOR [place]. Not Available [facility] (Lab) [address] [place], [address], 10/18/2023 15:10:09 05/18/20 23 01/06/2023 MRI, lumba r spine , w/o contr ast No observ ation record ed. [email or web address] Not Available 06/20 11:21:47 07/07/20 elect rocar diogr am No observ ation record ed. [facility] [address] [facility], [facility] [address], [place], [address], 07/07/2023 11:57:22 07/07/20 23 07/07/2023 elect rocar diogr am No observ ation record ed. BARCODE Not Available 2022 12:14:50 10/16/20 elect rocar diogr am No observ ation record ed. cyahl [facility] Randy [address] [facility] [address], [place], [address], 10/16/2023 17:49:22 10/16/20 23 10/16/2023 elect rocar diogr am No observ ation record ed. BARCODE [facility] [facility] [address], [place], [address], 10/16/2023 17:55:36 Result Notes None recorded. Problems Name Problem SNOMED Code Status Onset Date Resolution Date Notes Provider Name and Address Organization Details Recorded Time Pain in bilateral legs 5667094468022 9108 Active 2021 Not Available [facility] 3 07:04:59 Urinary incontinen ce 554579099 Active 2021 Not Available [facility] 3 07:04:59 Insomnia 709902032 Active 2021 Not Available [facility] 3 07:04:59 Congestive heart failure 14400886 Active 2021 Not Available [facility] 3 07:04:59 Essential hypertensi on 44388240 Active 2021 Not Available [facility] 3 07:04:59 Hyperlipid emia 26028717 Active 2021 Not Available [facility] 3 07:04:59 Spinal stenosis 67109035 Active 2022 Not Available [facility] 3 07:04:59 Cough 11759846 Active 2022 Not Available [facility] 3 07:04:59 Chronic cough 12526655 Active 2022 Not Available [facility] 3 07:04:59 Spinal stenosis of lumbar region 99670046 Active 2022 Not Available [facility] 3 07:04:59 Problem Notes None recorded. Procedures Surgical History Date Name Laterality Status Provider Name and Address Organization Details Recorded Time Breast Biopsy completed Not Available [facility] 01/19/2023 01:06:32 Imaging Results None recorded. Procedure Notes None recorded. Medical Equipment None Reported. Allergies No known drug allergies Medications Name Sig Start Date Stop Date Status Note LastModified by Organization Details LastModified Time atorvastati n 40 mg tablet Take 1 tablet every day by oral route. active Not Available Not Available No t Available carvedilol 12.5 mg tablet Take 1 tablet twice a day by oral route. active Not Available Not Available No t Available azithromyci n 250 mg tablet TAKE TWO TABLETS BY MOUTH ON DAY 1, THEN TAKE ONE TABLET ONE TIME DAILY ON DAYS 2-5 05/18 completed Not Available Not Available Not Available ibuprofen 800 mg tablet TAKE 1 TABLET THREE TIMES A DAY 05/19 completed Not Available Not Available Not Available benzonatate 200 mg capsule Take 1 capsule 3 times a day by oral route as needed. active Not Available Not Available No t Available valsartan 80 mg tablet Take 1 tablet every day by oral route. active Not Available Not Available No t Available penicillin V potassium 500 mg tablet TAKE 1 TABLET BY MOUTH FOUR TIMES DAILY UNTIL ALL TAKEN 05/18 completed Not Available Not Available Not Available acetaminoph en 300 mg-codeine 30 mg tablet TAKE 1 TABLET BY MOUTH EVERY 4 TO 6 HOURS NEEDED FOR PAIN 05/18 completed Not Available Not Available Not Available aspirin 81 mg tablet,wilmar yed release active Not Available Not Available Not Available spironolact one 25 mg tablet active Not Available Not Available Not Available ketorolac 0.5 % eye drops active Not Available Not Available Not Available prednisolon e acetate 1 % eye drops,suspe nsion active Not Available Not Available Not Available ciprofloxac in 0.3 % eye drops 10/16 completed Not Available Not Available Not Available naproxen sodium 550 mg tablet TAKE 1 TABLET BY MOUTH TWICE DAILY NEEDED FOR PAIN 05/18 completed Not Available Not Available Not Available zolpidem 5 mg tablet 05/18 completed Not Available Not Available Not Available furosemide 20 mg tablet active Not Available Not Available Not Available gabapentin 100 mg capsule TAKE 1 CAPSULE BY MOUTH AT BEDTIME active Not Available Not Available No t Available methylpredn isolone 4 mg tablets in a dose pack FOLLOW PACKAGE DIRECTION S 07/07 completed Not Available Not Available Not Available hydroxyzine pamoate 25 mg capsule TAKE 1 CAPSULE BY MOUTH EVERY DAY AT BEDTIME active Not Available Not Available No t Available potassium chloride ER 10 mEq tablet,exte nded release(par t/cryst) Take 1 tablet by oral route. active Not Available Not Available No t Available Asprin Ec Low Dose 07/07 completed Not Available Not Available Not Available ID NOW COVID-19 Test Kit TEST DIRECTED TODAY 06/29 /2022 completed Not Available Not Available Not Available Vitals Date Recorded Body mass index (BMI) Body height Heart rate Body temperature Body weight Systolic And Diastolic Provider Name and Address Organization Details Last Updated DateTime 3 26.3 kg/m2 149.86 cm 73 /min 97.2 [degF] 83324.0 1 g 118/74 mm[Hg] Not Available [facility] 3 01:07:00 Date Recorded Body height Body mass index (BMI) Body weight Body temperature Heart rate Oxygen saturation Oxygen saturation in Arterial blood by Pulse oximetry Systolic And Diastolic Provider Name and Address Organization Details Last Updated DateTime 3 149.86 cm 26.5 kg/m2 31349.6 g 97.7 [degF] 80 /min 95 % 95 % 128/70 mm[Hg] Kimber Cardoso MA [facility] [employer] 3 11:28:08 Date Recorded Body mass index (BMI) Body height Heart rate Body temperature Body weight Systolic And Diastolic Provider Name and Address Organization Details Last Updated DateTime 2 26.5 kg/m2 149.86 cm 77 /min 97.8 [degF] 17850.6 g 124/82 mm[Hg] Not Available [facility] 3 01:07:00 Date Recorded Body height Body mass index (BMI) Body weight Body temperature Heart rate Systolic And Diastolic Provider Name and Address Organization Details Last Updated DateTime 3 149.86 cm 24.4 kg/m2 11938.6 8 g 97.8 [degF] 84 /min 126/74 mm[Hg] Coretta Psator MA [facility] [employer] [facility] 3 17:03:28 Social History Question Answer Notes LastModified by Organization Details LastModified Time Tobacco Smoking Status Former Smoker Not Available [facility] 01/19/2023 01:06:23 Do You Have An Advance Directive? Yes [id number] Information not available 01/19/2023 Are You Blind Or Do You Have Difficulty Seeing? Yes Wears Glasses [id number] Information not available 01/19/2023 What Is Your Level Of Caffeine Consumption? Moderate [id number] Information not available 01/19/2023 In The 14 Days Before Symptom Onset, Have You Had Close Contact With A Laboratory-confi rmed COVID-19 While That Case Was Ill? No [id number] [id number] Information not available 01/19/2023 In The 14 Days Before Symptom Onset, Have You Had Close Contact With A Person Who Is Under Investigation For COVID-19 While That Person Was Ill? No [id number].[id number] [id number] Information not available 01/19/2023 Are You Deaf Or Do You Have Serious Difficulty Hearing? No [id number].[id number] [id number] Information not available 01/19/2023 What Type Of Diet Are You Following? REGULAR MIGRATION.0301 [id number] Information not available 01/19/2023 Have There Been Any Changes To Your Family Or Social Situation? No Information not available 07/07/2023 When Did You Quit Smoking? 16+yearssincelastc igarette MIGRATION.0301 [id number] Information not available 01/19/2023 Do You Use Insect Repellent Routinely? No Information not available 07/07/2023 Where Do You Live? SingleLevelHouse MIGRATION.0301 [id number] Information not available 01/19/2023 Do You Have A Medical Power Of Feather Maker? No [id number].0301 [id number] Information not available 01/19/2023 What Was The Date Of Your Most Recent Tobacco Screening? 10/16/2023 [email or web address] Information not available 10/16/2023 Do You Have Any Pets? No MIGRATION.0301 [id number] Information not available 01/19/2023 What Is Your Relationship Status? [id number].0301 [id number] Information not available 01/19/2023 Do You Use Your Seat Belt Or Car Seat Routinely? Yes [id number].0301 [id number] Information not available 01/19/2023 Do You Have Smoke And Carbon Monoxide Detectors In Your Home? Yes MIGRATION.0301 [id number] Information not available 01/19/2023 At What Age Did You Start Smoking Tobacco? 15 MIGRATION.0301 [id number] Information not available 01/19/2023 Are You Passively Exposed To Smoke? No MIGRATION.0301 [id number] Information not available 01/19/2023 Are There Any Smokers In Your House? No MIGRATION.0301 316661 Information not available 01/19/2023 Do You Use Sunscreen Routinely? Yes MIGRATION.0301 [id number] Information not available 01/19/2023 Have You Recently Traveled Abroad? No MIGRATION.0301 690890 Information not available 01/19/2023 Do You Have Difficulty Walking Or Climbing Stairs? No MIGRATION.0301 095512 Information not available 01/19/2023 Sex: Unknown Functional Status Question Answer Note LastModified by Organizat ion Details LastModified Time Do you use any illicit or recreational drugs? No Information not available 07/07/2023 What is your level of alcohol consumption? None [id number].[id number] [id number] Information not available 01/19/2023 Do you have transportation difficulties? No MIGRATION.[id number] 026 Information not available 01/19/2023 Are you able to walk independently without assistance or assistive devices? YESWOREST MIGRATION.[id number] 026 Information not available 01/19/2023 Do you have difficulty doing errands alone? No MIGRATION.[id number] 026 Information not available 01/19/2023 Are you able to care for yourself independently? Yes MIGRATION.[id number] 026 Information not available 01/19/2023 Do you have difficulty dressing, bathing, grooming, or toileting? No MIGRATION.[id number] 026 Information not available 01/19/2023 What is your exercise level? Occasional MIGRATION.[id number] 026 Information not available 01/19/2023 Mental Status None recorded. Family History Relationship Description Onset Age of this Age Resolved Age Notes LastModified by Organization Details LastModified Time Brother Family history of malignant neoplasm [id number] Not available 01/19/2023 01:06:34 Mother Heart disease [id number].105 [id number] Not available 01/19/2023 01:06:34 Medical History Condition Response BLINDNESS N NERVE DISEASE N RHEUMATIC FEVER N BLADDER PROBLEMS N KIDNEY STONES N MRSA N OTHER # 1 N POLIO N LUNG DISEASE/DISORDER N HISTORY OF DRUG ABUSE N RADIATION / CHEMOTHERAPY N COPD N Other # 2 N BLOOD DISEASES N EAR OR HEARING PROBLEMS N MUMPS N SHINGLES N DEPRESSION (INCLUDING POST ) N BOWEL PROBLEMS N STROKE/TIA N ULCERS N BENIGN PROSTATIC HYPERPLASIA N MEASLES N HYPOTENSION N MYOCARDIAL INFARCTION N OBESITY N GERD/NAUSEA N ANEURYSM N URINARY/BLADDER/KIDNEY PROBLEMS N CORONARY ARTERY DISEASE (CAD) N ADDICTION CONCERNS N ENDOMETRIOSIS N Impotence N USE OF BLOOD THINNERS N SKIN PROBLEMS N GASTROINTESTINAL DISORDER N PERIPHERAL VASCULAR DISEASE N MUSCLE,JOINT OR BONE PROBLEMS N GASTROINTESTINAL BLEEDING N BLOOD CLOTS N ASTHMA N CATARACTS N ERECTILE DYSFUNCTION N VARICOSITIES N GI PROBLEMS N Low Testosterone N INFERTILITY N AIDS/HIV N CHEMOTHERAPY / RADIATION N LIVER DISEASE N MALE HYPOGONADISM N HYPERTENSION Y Deficiency N TOURETTE'S N ANXIETY DISORDER N BLOOD TRANSFUSION N ANEMIA/BLOOD DISORDER N CHRONIC EAR INFECTIONS N BRONCHITIS N TUBERCULOSIS N GLAUCOMA N FOOT PROBLEM N DIVERTICULITIS N CHICKENPOX N SLEEP APNEA N INFECTIOUS DISEASE N HEART ARRHYTHMIA N PROSTATE N INSOMNIA N HIGH CHOLESTEROL / HYPERLIPIDEMIA Y HYPERTHYROIDISM N EYE PROBLEMS N EDEMA N CHRONIC PAIN SYNDROME N HYPOTHYROIDISM N CAROTID BLOCKAGE N CONSTIPATION N BACK / NECK PROBLEMS N HAVE YOU BEEN HOSPITALIZED OR SEEN IN THE MEDICAL CENTER IN THE PAST YEAR ? N ATHEROSCLEROSIS N BREAST PROBLEMS Y DIALYSIS N ECZEMA N OSTEOPOROSIS N ARTHRITIS Y APPENDICITIS N DIABETES, TYPE N BAD TEETH N ENT N HEARTBURN / REFLUX Y AUTISM SPECTRUM DISORDER (ASD) N HEPATITIS / LIVER DISEASE N GOUT N SLEEP DISORDER N ALZHEIMER'S DISEASE N Brain Problems N HERPES N DEMENTIA N HEADACHES/MIGRAINES N SEIZURES/EPILEPSY N VASCULAR DISEASE N PACEMAKER N Blood Disorder N DIZZINESS N HEART DISEASE/HEART PROBLEMS Y KIDNEY DISEASE N MULTIPLE SCLEROSIS N CARDIAC ARRHYTHMIA N CANCER: SPECIFY N ATRIAL FIBRILLATION N Gall Stones N PULMONARY EMBOLISM N AUTOIMMUNE DISEASE N Gynecological HistoryNo gynecological history recorded. Obstetrics History GPAL:G 0 P 0 0 0 0 Past Encounters Encounter ID Performer Location Encounter Start Date Encounter Closed Date Diagnosis/Indication Diagnosis SNOMED-CT Code Diagnosis ICD10 Code Diagnosis IMO Codes Diagnosis Note [id number] Almas Norris MD [facility] Internal Med [facility] [address] [address] 05/18/2022 00:00:00 06/04/2022 12:00:23 [id number] Almas Norris MD [facility] Internal Med [facility] [address] [address] 09/14/2022 00:00:00 09/14/2022 22:16:35 [id number] Almas Norris MD [facility] Internal Med [facility] [address] [address] 01/04/2023 00:00:00 01/08/2023 15:44:23 [id number] Almas Norris MD [facility] Internal Med [address] [facility] [address] [place] [address] 05/19/2023 10:40:50 05/19/2023 12:15:02 Hyperlipidemia 49833710 E78.5 Essential hypertension 55445732 I10 Congestive heart failure 08102985 I50.9 Spinal randy nosis of lumbar region 11497250 M48.062 [id number] Almas Norris MD [facility] Internal Med [facility] [address] [facility] [address] [place] [address] 07/07/2023 11:15:31 07/07/2023 12:07:19 Chronic cough 93377269 R05.3 Pre-surger y evaluation 413147863 Z01.912 [id number] Almas Norris MD [facility] Internal Med [facility] [address] [facility] [address] [place] [address] 10/16/2023 15:30:19 10/16/2023 17:50:36 Essential hypertension 75546939 I10 Hyperlipidemia 80640599 E78.5 Spinal randy nosis of lumbar region 98486818 M48.062 Congestive heart failure 02100785 I50.9 Health Concerns Section Related Observation LastModified by Organization Detai ls LastModified Time None Recorded Concern Status LastModified by Organization Details LastModified Time None Recorded Advance Directives Directive Y: Payers Insurance Date Sequence Insurance Name Policy Number Policy Lyons Covered Member ID Lyons Member ID Guarantor Name 11/21/2023 1 [facility] (MEDICARE REPLACEMENT/A DVANTAGE - PPO) [id number] Ella Ann [id number] Ella Ann Notes Date Note Type Note Provider Name and Address Organization Details Recorded Time 3 text/html Spinal stenosis severe with pain but no bowel or bladder continence no numbnessHyperlipidemia she does try to watch her intake of red meatCHF no chest pain or shortness of breathHypertension no headache or dizziness Almas Norris MD [address], [facility] [address], [place], [address], [facility] [employer] 05/20/2023 14:23:31 3 text/html Cataract surgery Almas Norris MD [address] [facility], [facility] [address], [place], [address], [facility] 07/07/2023 15:31:54 3 text/html We do not have the official notice but she states that she is going surge on her back she has not had any chest pain or shortness of breath no bowel or bladder problem Almas Norris MD [address] [facility], [address], [place], [address], [facility] 10/16/2023 23:04:21 OBGyn Episode No OBEpisode recorded.
--- OUTSIDE RECORDS SUMMARY | 2025-08-22 08:22 | XMS_ITS | Clinical Summary ---
Author Organization [facility] Address [address] [place] [address] Care Team Providers Care Casual Shoe Inspector Name Role Phone Almas Norris MD Primary Care Provider [phone] Allergies No known active allergies Medications atorvastatin [...] Former Cigarettes 1 5 1 970 - 1975 Smokeless Tobacco: Never Tobacco Cessation:Counseling Given: Not Answered Alcohol Use Standard Drinks/Week Comments Not Currently 0 (1 standard drink = 0.6 oz pur e alcohol) Comments No Sex and Gender Information Value Date Recorded Sex Assigned at Not on file Legal Sex Female 8:05 AM HAND TIRE TRIMMER Gender Identity Not on file Sexual Orientation Not on file Last Filed Vital Signs Vital Sign Reading Time Taken Comments Blood Pressure 131/66 01/08/2024 2:17 PM HAND TIRE TRIMMER Pulse 80 01/08/2024 2:17 PM HAND TIRE TRIMMER Temperature 36.1 C (97 F) 01/08/2024 2:17 PM HAND TIRE TRIMMER Respiratory Rate 12 01/08/2024 2:17 PM HAND TIRE TRIMMER Oxygen Saturation 96% 01/08/2024 2:17 PM HAND TIRE TRIMMER Inhaled Oxygen Concentration - - Weight 57.2 kg (126 lb 1.7 oz) 01/08/2024 6:30 A M HAND TIRE TRIMMER Height 149.9 cm (4' 11) 01/08/2024 6:30 AM HAND TIRE TRIMMER Body Mass Index 25.47 01/08/2024 6:30 AM HAND TIRE TRIMMER Plan of Treatment Health Maintenance Due Date Last Done Comments Zoster Vaccines (1 of 2) 02/07/1994 Pneumococcal Vaccine: 50+ Years (2 of 2 - PCV) 02/22/2008 02/21/2007 Annual Medicare Wellness Visit 02/07/2009 Dexa Scan (General) 02/07/2009 RSV Immunization or 60+ Years (1 - 1-dose 75+ series) 02/07/2019 DTaP, Tdap and Td Vaccines ( 2 - Td or Tdap) 07/21/2022 07/21/2012 COVID-19 Vaccine (1 - 2023-2 5 season) 2025 Influenza Adult (#1) 2025 07/29/2013, 07/22/2011, 08/09/2010 Meningococcal B Vaccine Aged Out No l onger eligible based on patient's age to complete this topic Meningococcal Vaccine Aged Out No kari rei eligible based on patient's age to complete this topic RSV Immunizations Under 20 Months Aged Out No longer eligible b ased on patient's age to complete this topic Insurance Care Teams Casual Shoe Inspector Relationship Specialty Start Date End Date Almas Norris MD PCP - General INTERNAL MEDICINE 09/26/23
--- OUTSIDE RECORDS SUMMARY | 2025-08-22 08:23 | XMS_ITS | Clinical Summary ---
Author Organization [facility] Physician Office Building [address] [place] [address] Care Team Providers Care Barker Peeler Name Role Phone Almas Norris MD Primary Care Provider [phone] Allergies No known active allergies Medications potassium [...] on file Legal Sex Female 11:59 PM WEB CONTENT DEVELOPER Gender Identity Not on file Sexual Orientation [...] 36.6 C (97.8 F) 01/02/2025 9:56 AM WEB CONTENT DEVELOPER Respiratory Rate 18 03/18/2025 8:19 AM CDT Oxygen Saturation 97% 01/02/2025 9:56 AM WEB CONTENT DEVELOPER Inhaled Oxygen Concentration - - Weight 60.8 [...] history exists Medical Devices Implanted Type Area Protective Signal Superintendent Device Identifier Shelf Expiration Date Model / Serial / Lot [employer] Angio-Seal Vip 6fr Closere Device [id number] - [id number] Implanted:Qty: 1 on 12/19/2023 by Taya Gilliam MD at [facility] Other - see comments [employer] 09/19/2024 [id number] / / [id number] Procedures Procedure Name Priority Date/Time Associated Diagnosis Comments LIPID PANEL Routine 03/18/2025 9:09 AM CDT Multiple-type hyperlipidemia EGFR Routine 07/01/2024 1:30 PM CDT Essential hypertension HEMOGLOBIN A1C Routine 01/16/2024 10:45 AM WEB CONTENT DEVELOPER Diabetes mellitus type II, non insulin dependent [...] 2018. Triglycerides 137 <=149 mg/dL [facility] Comment: Interpretive Data Ages < or = [...] 2024. Non-HDL Cholesterol 91 mg/dL [facility] Comment: Interpretive Data Ages < or = [...] LAB BLOOD ORDERABLES nal Result [facility] 1 [facility] [place] [address] * (ABNORMAL) eGFR (07/01/2024 1:30 PM CDT) [...] BLOOD ORDERABLES Final Resu lt [facility] 1 [facility] [place] [address] * (ABNORMAL) Hemoglobin A1c (01/16/2024 10:45 AM WEB CONTENT DEVELOPER) Hgb A1C 5.7(H) 4.0 - 5.6 % [facility] Estimated Average Glucose 117 mg/dL [facility] Comment: The ADA recommends reporting an estimated Average Glucose (eAG) with all Hemoglobin A1c results using the equation derived from a study of 507 normal and diabetic adults. Minority populations were underrepresented and children were not included. (Diabetes Care 31:8970-9122, 2008). The eAG is not equivalent to a fasting glucose. Blood 01/16/2024 10:4 5 AM WEB CONTENT DEVELOPER 01/16/2024 11:19 AM WEB CONTENT DEVELOPER Geremias Matos MD LAB BLOOD ORDERABLES Final Resu lt [facility] 1 [facility] [place] [address] from Last 3 Months or Most Recently Relevant to Health Maintenance Insurance [facility] MEDICARE ADVANTAGE [facility] MEDICARE ADVANTAGE Advance Directives For more information, please contact: [phone] * Full Code (Latest Code Status on File) Date Activated Date Inactivated Comments 01/02/2025 7:19 AM 01/02/2025 2:12 PM * Full Code Date Activated Date Inactivated Comments 01/02/2025 7:19 AM 01/02/2025 7:19 AM * Full Code Date Activated Date Inactivated Comments 12/19/2023 10:11 AM 12/19/2023 5:10 PM Care Teams Barker Peeler Relationship Specialty Start Date End Date Almas Norris MD PCP - General Internal Medicine 06/06/22
== END 2025-08-22 08:15 | disposition home or self-care (01) ==
PROVIDERS: PCP Internal Medicine; Visit Provider Internal Medicine
DX: M25.562 Pain in left knee (principal)
CPT/HCPCS: 76882

== ENCOUNTER 2025-10-07 15:24 | Outpatient (CLI) | payer MEDICARE, SELFPAY ==
--- NOTE | ~2025-10-07 | MR_ITS ---
EXAMINATION: MR knee LT wo con DATE: 10/07/2025 16:02 INDICATION: Knee pain TECHNIQUE: Magnetic resonance imaging (MRI) of the knee was performed without intravenous contrast. Sequences included axial PD-weighted FS FSE, coronal PD- weighted FSE and PD-weighted FS FSE, sagittal PD-weighted FSE, and sagittal T2- weighted FS FSE. COMPARISON: None. FINDINGS: No fracture subluxation or dislocation. 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 There is also mild diffuse edematous appearing changes in the medial tibial plateau but no fracture defect. Small joint effusion present. Somewhat complex tear involving the posterior horn the medial meniscus with vertical and horizontal components and extending into the midportion of the meniscus. The anterior horn appears intact. The lateral meniscus and both cruciate ligaments appear intact. Collateral ligaments appear intact. Extra articular soft tissues including quadriceps and infrapatellar tendons appear intact. IMPRESSION: 1. Complex medial meniscal tear involving the posterior horn. 2. 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 Reviewed, dictated and finalized at location A. NT DEVELOPMENT SPECIALIST
== END 2025-10-07 15:25 | disposition home or self-care (01) ==
LOC: MICIMG 15:25
PROVIDERS: PCP Internal Medicine; Visit Provider Orthopaedic Surgery
DX: M25.562 Pain in left knee (principal)
CPT/HCPCS: 73721

== ENCOUNTER 2025-11-10 03:42 | Day surgery (SDC) | payer MEDICARE, SELFPAY ==
--- NOTE | 2025-11-03 09:16 | PC.NURSE ---
[facility] has started construction of its new state of the art ER which will open Spring 2026. With this, we anticipate parking may be a challenge for some our surgical patients and families. Parking spaces are limited but are available for all Surgical, obstetrics, and ER patients sharing this lot. If you arrive and find you are having a hard time finding a parking space, please note that we understand the challenges, please drive around the hospital and park near Hospital Entrance 1. When you enter this entrance, you can ask a volunteer to direct or take you back to the surgical waiting area to check in. We appreciate everyone?s understanding of these expected challenges while we build for your future. Report to the Outpatient Waiting Room, entrance under the green pavilion located off [address], at time __8:00AM on date __11/10/25 . Planned Procedure Time: _10 AM .? Time changes happen often and if your time is changed the preop area will call you the afternoon before. - You and your visitor will be asked to self-screen and do not enter if you have any COVID symptoms. Please call surgeon if you need to reschedule. - A mask is optional within the hospital at this time. Patients may have clear liquids (water, carbonated beverages, clear teas, apple juice) until 3 hours prior to surgery( 7AM) with a maximum of 20 ounces. - No food from midnight until time of surgery and no smoking, or chewing tobacco (or any form of nicotine). No chewing gum, candy or mints. - Take only the following medications with a SIP of water on the morning of surgery: ____CARVEDILOL DO NOT STOP ANY OF YOUR OTHER PRESCRIPTION MEDICATIONS PRIOR TO SURGERY EXCEPT THE FOLLOWING Hold all vitamins and supplements for 3 days per anesthesiologist. Medications to discontinue per physician NONE Please no make-up, nail s[place]ank[place], hairspray, perfume, deodorant, or body powder the day of surgery.? No jewelry (including any body piercings) or valuables the day of surgery, leave them at home.? Please take a shower or bath the night before, or the morning of, surgery with an antibacterial soap.? Wear comfortable, loose fitting clothing.? Children are encouraged to wear pajamas. - Jewelry must be removed prior to entering the operating room.? Rings and piercings that are not removed may be cut off. - The hospital will not accept responsibility for valuables.? - Please leave all valuables, including medications, at home the day of surgery. If you are going home after surgery, a licensed superintendent drivers must drive you home.? - NO public transportation without another adult if you receive anesthesia. - We recommend that an adult stay with you for 24 hours following discharge. - We also recommend that you do not drive, make important decision, drink alcoholic beverages, or take any drugs that were not prescribed by your health care provider for at least 24 hours after your discharge time. For Pediatric surgeries, we recommend two adults accompany the child home. Follow any additional instructions given to you from your surgeon. Telephone instructions given to ___PATIENT and asked if any additional questions and then verbalized understanding. Patient advised to call surgeon office or pre surgery nurse liaison [phone] if any additional questions.
[2025-11-03 09:34] VITALS: BMI 26.6
--- NOTE | 2025-11-06 07:05 | PM.IMHP2 ---
H&P: HPI History of Present Illness Date/Time: 11/06/25 07:05 Chief Complaint: Patient is knee pain left. She has mechanical catching and locking in knee and has a meniscal tear based on MRI scan. She has failed conservative treatment like to consider surgical intervention at this time. Review of Systems Musculoskeletal: Musculoskeletal: Reports arthralgias, Reports joint swelling and Reports stiffness Neurologic: Reports abnormal gait [facility] Family History Family History Mother Heart disease Sibling Cerebrovascular accident Social History Social History (Updated 10/14/25 @ 09:08 by Natalia Dumont [facility]) Smoking packs per day: 1 Smoking cigarettes per day: 20.0 Years smoked: 10 Smoking pack-years: 10.00 Smoking status: Former smoker Tobacco type: cigarettes Smoking end date: 11/20/64 Alcohol intake: never Substance use: never Lack of Transportation: No Lack of Food: Never True Current Housing: I Have Housing Concerned About Future Housing: No Difficulty Paying Gas/Electric Bills: No Difficulty Paying for Meds: No Currently Unemployed: No Education: High School Diploma/GED Difficulty w/ Childcare or Family Care: No Living arrangements: with family Spiritual care concerns: No Meds Home Medications and Allergies Home Medications ?Medication ?Instructions ?Recorded ?Confirmed ?Type atorvastatin 40 mg tablet (Lipitor) 40 mg PO DAILY 09/11/25 11/03/25 History carvedilol 12.5 mg tablet 12.5 mg PO Q12H 09/11/25 11/03/25 History empagliflozin 10 mg tablet 10 mg PO DAILY 09/11/25 11/03/25 History furosemide 40 mg tablet (Lasix) 40 mg PO QAM 09/11/25 11/03/25 History potassium chloride 10 mEq 10 meq PO DAILY 09/11/25 11/03/25 History tablet,extended release (Klor-Con) spironolactone 25 mg tablet 25 mg PO DAILY 09/11/25 11/03/25 History valsartan 80 mg tablet 80 mg PO DAILY 09/11/25 11/03/25 History Allergies Allergy/AdvReac Type Severity Reaction Status Date / Time No Known Allergies Allergy Verified 11/03/25 09:15 Exam Narrative: On exam she has catching locking and pain with her left knee. Should mechanical-type symptoms. She walks with a limp. She has tenderness on the joint line and a positive Rufino's sign. Neurologically she is intact. Radiology Reports: Comments: Magnetic Resonance Report Signed Patient: Ella Ann EXAMINATION: MR knee LT wo con DATE: 10/07/2025 16:02 INDICATION: Knee pain TECHNIQUE: Magnetic resonance imaging (MRI) of the knee was performed without intravenous contrast. Sequences included axial PD-weighted FS FSE, coronal PD-weighted FSE and PD-weighted FS FSE, sagittal PD-weighted FSE, and sagittal T2-weighted FS FSE. COMPARISON: None. FINDINGS: No fracture subluxation or dislocation. 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 There is also mild diffuse edematous appearing changes in the medial tibial plateau but no fracture defect. Small joint effusion present. Somewhat complex tear involving the posterior horn the medial meniscus with vertical and horizontal components and extending into the midportion of the meniscus. The anterior horn appears intact. The lateral meniscus and both cruciate ligaments appear intact. Collateral ligaments appear intact. Extra articular soft tissues including quadriceps and infrapatellar tendons appear intact. IMPRESSION: 1. Complex medial meniscal tear involving the posterior horn. 2. 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 Reviewed, dictated and finalized at location [facility] Knee X-Ray 07/28/25 Knee MRI 10/07/25 Assessment and Plan Assessment and plan (1) Acute medial meniscus tear of left knee: Code(s): S83.242A - Other tear of medial meniscus, current injury, left knee, initial encounter Status: Acute Assessment and Plan: Patient has medial meniscal tear left knee. It is painful for interferes with her activities. She has failed conservative treatment would like to consider surgical intervention. I have discussed this with her in detail including the risks, benefits, limitations, and alternatives. She understands would like to proceed will proceed with arthroscopy of the left knee partial medial meniscectomy proceed as indicated. She understands that she has arthritis in the knee as well and arthroscopy will not alleviate the pain from her degenerative changes.
[2025-11-10] VITALS (9 sets, daily range): BP systolic 92–129; BP diastolic 48–88; PULSE 67–78; RESP 8–97; TEMP 36.2–36.6; O2SAT 96–99
--- OUTSIDE RECORDS SUMMARY | 2025-11-10 03:45 | XMS_ITS | Data Portability ---
Author Organization [place] - [facility] [place], Main Office Address [address] [place] [address] Assessment Encounter Date Assessment Date Assessment LastModified by Organization Details LastModified Time 05/19/2023 05/19/2023 Diagnosis in the assessment plan have been discussed she needs a surgical consultation I will arrange for that follow-up with me in 4 months Not available 05/20/2023 14:22:57 07/07/2023 07/07/2023 Normal sinus rhythm bundle left bundle-branch block blood work reviewed clear cleared for cataract surgery keep regular follow-up Not available 07/07/2023 15:31:35 10/16/2023 10/16/2023 EKG sinus rhythm with LBBB She is seeing cardiology next week From my standpoint is lungs are blood work is fine she is medically optimized [email or web address] Not available 10/16/2023 23:04:05 Plan of Treatment Reminders Order Date Submit Date Provider Last Modified By Organization Details Last Modified Time Details Appointments None recorded. Lab CBC w/ auto diff 2022 023 [facility] (Lab), [address] [place], [address], 3 13:54:04 lipid panel, serum 2022 023 [facility] (Lab), [address] [place], [address], 3 15:10:09 CMP, serum or plasma 2022 023 [facility] (Lab), [address] [place], [address], 15:10:06 Referral None recorded. Procedures None recorded. Surgeries None recorded. Imaging electrocard iogram [address] [facility] [place] [address], [place], [address], 17:59:46 electrocard iogram [email or web address] [facility] [place] [address], [place], [address], 15:31:51 Medication Orders benzonatate 200 mg capsule 2022 023 [facility], [facility] [address], [facility] [address], [place], [place], [id number], 15:31:53 Patient TargetsNo targets recorded. Patient InstructionsNo instructions recorded. Reason for Referral None Reported. Results Created Date Observation Date Name Description Value Unit Range Abnormal Flag Note LastModifiedBy Organization Detail LastModifiedTime 05/19/2005/19/2023 CBC/C OMPLE TE BLD COUNT W/DIF F white blood cells 5.4 x10'3 /uL 4.2-10 .8 Not Available [facility] (Lab) [address] [place], [address], 05/19/2023 15:08:44 05/19/20 23 05/19/2023 CBC/C OMPLE TE BLD COUNT W/DIF F red blood cells 4.71 x10'6 /uL 3.80-5 .20 Not Available [facility] (Lab) [address] [place], [address], 05/19/2023 15:08:44 05/19/20 23 05/19/2023 CBC/C OMPLE TE BLD COUNT W/DIF F hemoglobin 14.2 g/dL 12.0-1 5.6 Not Available [facility] (Lab) [address] [place], [address], 05/19/2023 15:08:44 05/19/20 23 05/19/2023 CBC/C OMPLE TE BLD COUNT W/DIF F hematocrit 44.3 % 35.7-4 5.7 Not Available [facility] (Lab) [address] [place], [address], 05/19/2023 15:08:44 05/19/20 23 05/19/2023 CBC/C OMPLE TE BLD COUNT W/DIF F mean red cell volume 94.1 fL 82.0-9 9.0 Not Available [facility] (Lab) [address] [place], [address], 05/19/2023 15:08:44 05/19/20 23 05/19/2023 CBC/C OMPLE TE BLD COUNT W/DIF F mean red cell hemoglobin 30.1 pg 27.0-3 3.0 Not Available [facility] (Lab) [address] [place], [address], 05/19/2023 15:08:44 05/19/20 23 05/19/2023 CBC/C OMPLE TE BLD COUNT W/DIF F mean RBC HGB concentratio n 32.1 g/dL 31.0-3 6.0 Not Available [facility] (Lab) [address] [place], [address], 05/19/2023 15:08:44 05/19/20 23 05/19/2023 CBC/C OMPLE TE BLD COUNT W/DIF F red cell distribution width 12.9 % 11.8-1 5.5 Not Available [facility] (Lab) [address] [place], [address], 05/19/2023 15:08:44 05/19/20 23 05/19/2023 CBC/C OMPLE TE BLD COUNT W/DIF F platelets 229 x10'3 /uL 150-40 0 Not Available [facility] (Lab) [address] [place], [address], 05/19/2023 15:08:44 05/19/20 23 05/19/2023 CBC/C OMPLE TE BLD COUNT W/DIF F mean platelet volume 10.7 fL 9.0-12 .4 Not Available [facility] (Lab) [address] [place], [address], 05/19/2023 15:08:44 05/19/20 23 05/19/2023 CBC/C OMPLE TE BLD COUNT W/DIF F neutrophils 62.8 % 39.0-7 2.0 Not Available [facility] (Lab) [address] [place], [address], 05/19/2023 15:08:44 05/19/20 23 05/19/2023 CBC/C OMPLE TE BLD COUNT W/DIF F lymphocytes 26.1 % 16.0-4 7.0 Not Available [facility] (Lab) [address] [place], [address], 05/19/2023 15:08:44 05/19/20 23 05/19/2023 CBC/C OMPLE TE BLD COUNT W/DIF F monocytes 6.8 % 5.0-12 .0 Not Available [facility] (Lab) [address] [place], [address], 05/19/2023 15:08:44 05/19/20 23 05/19/2023 CBC/C OMPLE TE BLD COUNT W/DIF F eosinophils 2.6 % 1.0-7. 0 Not Available [facility] (Lab) [address] [place], [address], 05/19/2023 15:08:44 05/19/20 23 05/19/2023 CBC/C OMPLE TE BLD COUNT W/DIF F basophils 1.1 % 0.0-2. 0 Not Available [facility] (Lab) [address] [place], [address], 05/19/2023 15:08:44 05/19/20 23 05/19/2023 CBC/C OMPLE TE BLD COUNT W/DIF F immature granulocytes 0.6 % 0.00-0 .50 high Not Available [facility] (Lab) [address] [place], [address], 05/19/2023 15:08:44 05/19/20 23 05/19/2023 CBC/C OMPLE TE BLD COUNT W/DIF F neutrophils, absolute count 3.42 x10'3 /uL 1.5-8. 0 Not Available [facility] (Lab) [address] [place], [address], 05/19/2023 15:08:44 05/19/20 23 05/19/2023 CBC/C OMPLE TE BLD COUNT W/DIF F lymphocytes, absolute count 1.42 x10'3 /uL 1.07-3 .43 Not Available [facility] (Lab) [address] [place], [address], 05/19/2023 15:08:44 05/19/20 23 05/19/2023 CBC/C OMPLE TE BLD COUNT W/DIF F monocytes, absolute count 0.37 x10'3 /uL 0.29-0 .99 Not Available [facility] (Lab) [address] [place], [address], 05/19/2023 15:08:44 05/19/20 23 05/19/2023 CBC/C OMPLE TE BLD COUNT W/DIF F eosinophils, absolute count 0.14 x10'3 /uL 0.02-0 .53 Not Available [facility] (Lab) [address] [place], [address], 05/19/2023 15:08:44 05/19/20 23 05/19/2023 CBC/C OMPLE TE BLD COUNT W/DIF F basophils, absolute count 0.06 x10'3 /uL 0.01-0 .08 Not Available [facility] (Lab) [address] [place], [address], 05/19/2023 15:08:44 05/19/20 23 05/19/2023 CBC/C OMPLE TE BLD COUNT W/DIF F immature granulocytes ,absolute 0.03 x10'3 /uL 0.00-0 .05 Not Available [facility] (Lab) [address] [place], [address], 05/19/2023 15:08:44 05/19/20 23 05/19/2023 CBC/C OMPLE TE BLD COUNT W/DIF F nucleated red blood cells 0.0 % -[address] [facility] (Lab) [address] [place], [address], 05/19/2023 15:08:44 05/19/20 23 05/19/2023 CBC/C OMPLE TE BLD COUNT W/DIF F NRBC# 0.00 x10'3 /uL Not Available [facility] (Lab) [address] [place], [address], 05/19/2023 15:08:44 05/19/20 23 05/19/2023 COMPR EHENS KALIE METAB OLIC PANEL sodium 142 mmol/ L 137-14 5 Not Available [facility] (Lab) [address] [place], [address], 05/19/2023 16:19:25 05/19/20 23 05/19/2023 COMPR EHENS KALIE METAB OLIC PANEL potassium 4.6 mmol/ L 3.5-5. 1 Not Available [facility] (Lab) [address] [place], [address], 05/19/2023 16:19:25 05/19/20 23 05/19/2023 COMPR EHENS KALIE METAB OLIC PANEL chloride 104 mmol/ L 98-107 Not Available [facility] (Lab) [address] [place], [address], 05/19/2023 16:19:25 05/19/20 23 05/19/2023 COMPR EHENS KALIE METAB OLIC PANEL carbon dioxide 28 mmol/ L 22-30 Not Available [facility] (Lab) [address] [place], [address], 05/19/2023 16:19:25 05/19/20 23 05/19/2023 COMPR EHENS KALIE METAB OLIC PANEL anion gap 14.6 mmol/ L 14-22 Not Available [facility] (Lab) [address] [place], [address], 05/19/2023 16:19:25 05/19/20 23 05/19/2023 COMPR EHENS KALIE METAB OLIC PANEL glucose 95 mg/dL 70-99 Not Available [facility] (Lab) [address] [place], [address], 05/19/2023 16:19:25 05/19/20 23 05/19/2023 COMPR EHENS KALIE METAB OLIC PANEL BUN 25 mg/dL 8-19 high Not Available [facility] (Lab) [address] [place], [address], 05/19/2023 16:19:25 05/19/20 23 05/19/2023 COMPR EHENS KALIE METAB OLIC PANEL creatinine 0.94 mg/dL 0.66-1 .25 Not Available [facility] (Lab) [address] [place], [address], 05/19/2023 16:19:25 05/19/20 23 05/19/2023 COMPR EHENS KALIE METAB OLIC PANEL GFR 57 Refer ence Range : [place] ge GFR Healt hy Adult : >60 [...] calcu lator is avail able on the [facility] websi te: https :[email or web address] rg/pr ofess ional s/kdo qi/gf r_cal culat or Not Available [facility] (Lab) [address] [place], [address], 05/19/2023 16:19:25 05/19/20 23 05/19/2023 COMPR EHENS KALIE METAB OLIC PANEL alkaline phosphatase 112 U/L 38-[address] [facility] (Lab) [address] [place], [address], 05/19/2023 16:19:25 05/19/20 23 05/19/2023 COMPR EHENS KALIE METAB OLIC PANEL alanine aminotransfe rase 17 U/L 0-[address] [facility] (Lab) [address] [place], [address], 05/19/2023 16:19:25 05/19/20 23 05/19/2023 COMPR EHENS KALIE METAB OLIC PANEL aspartate aminotransfe rase 23 U/L 15-[address] [facility] (Lab) [address] [place], [address], 05/19/2023 16:19:25 05/19/20 23 05/19/2023 COMPR EHENS KALIE METAB OLIC PANEL bilirubin, total 0.70 mg/dL 0.20-1 .30 Not Available [facility] (Lab) [address] [place], [address], 05/19/2023 16:19:25 05/19/20 23 05/19/2023 COMPR EHENS KALIE METAB OLIC PANEL calcium 9.4 mg/dL 8.4-10 .2 Not Available [facility] (Lab) [address] [place], [address], 05/19/2023 16:19:25 05/19/20 23 05/19/2023 COMPR EHENS KALIE METAB OLIC PANEL total protein 6.7 g/dL 6.3-8. 2 Not Available [facility] (Lab) [address] [place], [address], 05/19/2023 16:19:25 05/19/20 23 05/19/2023 COMPR EHENS KALIE METAB OLIC PANEL albumin 4.0 g/dL 3.0-4. 4 Not Available [facility] (Lab) [address] [place], [address], 05/19/2023 16:19:25 05/19/20 23 05/19/2023 COMPR EHENS KALIE METAB OLIC PANEL globulin 2.7 g/dL 2.6-4. 2 Not Available [facility] (Lab) [address] [place], [address], 05/19/2023 16:19:25 05/19/20 23 05/19/2023 COMPR EHENS KALIE METAB OLIC PANEL A/G ratio 1.5 ratio 1.0-2. 0 Not Available [facility] (Lab) [address] [place], [address], 05/19/2023 16:19:25 05/19/20 23 05/19/2023 LIPID PANEL cholesterol 142 mg/dL 140-19 9 NIH JENA NSUS RECOM MENDA TION FOR LEONA STERO L: ADULT CHILD LOW RISK: <200 <170 BORDE RLINE : <200- 239 ----- HIGH RISK: >240 >200 Not Available [facility] (Lab) [address] [place], [address], 05/19/2023 16:19:29 05/19/20 23 05/19/2023 LIPID PANEL triglyceride s 100 mg/dL 0-150 NIH JENA NSUS REPOR T RECOM MENDA TION FOR TRIGL YCERI AUGUSTA: ADULT CHILD LOW RISK: <150 ----- BODER LINE: 150-1 99 ----- HIGH RISK: >200 ----- Not Available [facility] (Lab) [address] [place], [address], 05/19/2023 16:19:29 05/19/20 23 05/19/2023 LIPID PANEL HDL cholesterol 49 mg/dL 40- Not Available [facility] (Lab) [address] [place], [address], 05/19/2023 16:19:29 05/19/20 23 05/19/2023 LIPID PANEL [...] WILL NOT BE REPOR [place]. Not Available [facility] (Lab) [address] [place], [address], 05/19/2023 16:19:29 10/18/20 23 10/18/2023 CBC/C OMPLE TE BLD COUNT W/DIF F white blood cells 5.7 x10'3 /uL 4.2-10 .8 Not Available [facility] (Lab) [address] [place], [address], 10/18/2023 13:54:04 10/18/20 23 10/18/2023 CBC/C OMPLE TE BLD COUNT W/DIF F red blood cells 4.37 x10'6 /uL 3.80-5 .20 Not Available [facility] (Lab) [address] [place], [address], 10/18/2023 13:54:04 10/18/2010/18/2023 CBC/C OMPLE TE BLD COUNT W/DIF F hemoglobin 13.6 g/dL 12.0-1 5.6 Not Available [facility] (Lab) [address] [facility] [place], [address], 10/18/2023 13:54:04 10/18/20 23 10/18/2023 CBC/C OMPLE TE BLD COUNT W/DIF F hematocrit 41.9 % 35.7-4 5.7 Not Available [facility] (Lab) [address] [place], [address], 10/18/2023 13:54:04 10/18/2010/18/2023 CBC/C OMPLE TE BLD COUNT W/DIF F mean red cell volume 95.9 fL 82.0-9 9.0 Not Available [facility] (Lab) [address] [place], [address], 10/18/2023 13:54:04 10/18/20 23 10/18/2023 CBC/C OMPLE TE BLD COUNT W/DIF F mean red cell hemoglobin 31.1 pg 27.0-3 3.0 Not Available [facility] (Lab) [address] [place], [address], 10/18/2023 13:54:04 10/18/20 23 10/18/2023 CBC/C OMPLE TE BLD COUNT W/DIF F mean RBC HGB concentratio n 32.5 g/dL 31.0-3 6.0 Not Available [facility] (Lab) [address] [facility] [place], [address], 10/18/2023 13:54:04 10/18/20 23 10/18/2023 CBC/C OMPLE TE BLD COUNT W/DIF F red cell distribution width 12.8 % 11.8-1 5.5 Not Available [facility] (Lab) [address] [place], [address], 10/18/2023 13:54:04 10/18/20 23 10/18/2023 CBC/C OMPLE TE BLD COUNT W/DIF F platelets 213 x10'3 /uL 150-40 0 Not Available [facility] (Lab) [address] [facility] [place], [address], 10/18/2023 13:54:04 10/18/20 23 10/18/2023 CBC/C OMPLE TE BLD COUNT W/DIF F mean platelet volume 10.7 fL 9.0-12 .4 Not Available [facility] (Lab) [address] [place], [address], 10/18/2023 13:54:04 10/18/20 23 10/18/2023 CBC/C OMPLE TE BLD COUNT W/DIF F neutrophils 65.2 % 39.0-7 2.0 Not Available [facility] (Lab) [address] [place], [address], 10/18/2023 13:54:04 10/18/20 23 10/18/2023 CBC/C OMPLE TE BLD COUNT W/DIF F lymphocytes 23.0 % 16.0-4 7.0 Not Available [facility] (Lab) [address] [place], [address], 10/18/2023 13:54:04 10/18/2010/18/2023 CBC/C OMPLE TE BLD COUNT W/DIF F monocytes 7.6 % 5.0-12 .0 Not Available [facility] (Lab) [address] [place], [address], 10/18/2023 13:54:04 10/18/2010/18/2023 CBC/C OMPLE TE BLD COUNT W/DIF F eosinophils 2.3 % 1.0-7. 0 Not Available [facility] (Lab) [address] [place], [address], 10/18/2023 13:54:04 10/18/2010/18/2023 CBC/C OMPLE TE BLD COUNT W/DIF F basophils 1.4 % 0.0-2. 0 Not Available [facility] (Lab) [address] [place], [address], 10/18/2023 13:54:04 10/18/2010/18/2023 CBC/C OMPLE TE BLD COUNT W/DIF F immature granulocytes 0.5 % 0.00-0 .50 Not Available [facility] (Lab) [address] [place], [address], 10/18/2023 13:54:04 10/18/2010/18/2023 CBC/C OMPLE TE BLD COUNT W/DIF F neutrophils, absolute count 3.69 x10'3 /uL 1.5-8. 0 Not Available [facility] (Lab) [address] [place], [address], 10/18/2023 13:54:04 10/18/20 23 10/18/2023 CBC/C OMPLE TE BLD COUNT W/DIF F lymphocytes, absolute count 1.30 x10'3 /uL 1.07-3 .43 Not Available [facility] (Lab) [address] [place], [address], 10/18/2023 13:54:04 10/18/2010/18/2023 CBC/C OMPLE TE BLD COUNT W/DIF F monocytes, absolute count 0.43 x10'3 /uL 0.29-0 .99 Not Available [facility] (Lab) [address] [place], [address], 10/18/2023 13:54:04 10/18/20 23 10/18/2023 CBC/C OMPLE TE BLD COUNT W/DIF F eosinophils, absolute count 0.13 x10'3 /uL 0.02-0 .53 Not Available [facility] (Lab) [address] [place], [address], 10/18/2023 13:54:04 10/18/2010/18/2023 CBC/C OMPLE TE BLD COUNT W/DIF F basophils, absolute count 0.08 x10'3 /uL 0.01-0 .08 Not Available [facility] (Lab) [address] [place], [address], 10/18/2023 13:54:04 10/18/2010/18/2023 CBC/C OMPLE TE BLD COUNT W/DIF F immature granulocytes ,absolute 0.03 x10'3 /uL 0.00-0 .05 Not Available [facility] (Lab) [address] [place], [address], 10/18/2023 13:54:04 10/18/20 23 10/18/2023 CBC/C OMPLE TE BLD COUNT W/DIF F nucleated red blood cells 0.0 % -[address] [facility] (Lab) [address] [place], [address], 10/18/2023 13:54:04 10/18/20 23 10/18/2023 CBC/C OMPLE TE BLD COUNT W/DIF F NRBC# 0.00 x10'3 /uL Not Available [facility] (Lab) [address] [place], [address], 10/18/2023 13:54:04 10/18/20 23 10/18/2023 COMPR EHENS KALIE METAB OLIC PANEL sodium 142 mmol/ L 137-14 5 Not Available [facility] (Lab) [address] [place], [address], 10/18/2023 15:10:06 10/18/20 23 10/18/2023 COMPR EHENS KALIE METAB OLIC PANEL potassium 3.9 mmol/ L 3.5-5. 1 Not Available [facility] (Lab) [address] [place], [address], 10/18/2023 15:10:06 10/18/20 23 10/18/2023 COMPR EHENS KALIE METAB OLIC PANEL chloride 108 mmol/ L 98-107 high Not Available [facility] (Lab) [address] [place], [address], 10/18/2023 15:10:06 10/18/20 23 10/18/2023 COMPR EHENS KALIE METAB OLIC PANEL carbon dioxide 24 mmol/ L 22-30 Not Available [facility] (Lab) [address] [place], [address], 10/18/2023 15:10:06 10/18/20 23 10/18/2023 COMPR EHENS KALIE METAB OLIC PANEL anion gap 13.9 mmol/ L 14-22 low Not Available [facility] (Lab) [address] [place], [address], 10/18/2023 15:10:06 10/18/20 23 10/18/2023 COMPR EHENS KALIE METAB OLIC PANEL glucose 103 mg/dL 70-99 high Not Available [facility] (Lab) [address] [place], [address], 10/18/2023 15:10:06 10/18/20 23 10/18/2023 COMPR EHENS KALIE METAB OLIC PANEL BUN 27 mg/dL 8-19 high Not Available [facility] (Lab) [address] [place], [address], 10/18/2023 15:10:06 10/18/20 23 10/18/2023 COMPR EHENS KALIE METAB OLIC PANEL creatinine 1.21 mg/dL 0.66-1 .25 Not Available [facility] (Lab) [address] [place], [address], 10/18/2023 15:10:06 10/18/20 23 10/18/2023 COMPR EHENS KALIE METAB OLIC PANEL GFR 43 Refer ence Range : [place] ge GFR Healt hy Adult : >60 [...] or ethni c subgr oups, such as [facility] nics. Outsi de the valid [...] calcu lator is avail able on the [facility] websi te: [email or web address] :[email or web address] [email or web address] rg/pr ofess ional s/kdo qi/gf r_cal culat or Not Available [facility] (Lab) [address] [place], [address], 10/18/2023 15:10:06 10/18/20 23 10/18/2023 COMPR EHENS KALIE METAB OLIC PANEL alkaline phosphatase 102 U/L 38-[address] [facility] (Lab) [address] [place], [address], 10/18/2023 15:10:06 10/18/20 23 10/18/2023 COMPR EHENS KALIE METAB OLIC PANEL alanine aminotransfe rase 11 U/L 0-[address] [facility] (Lab) [address] [place], [address], 10/18/2023 15:10:06 10/18/20 23 10/18/2023 COMPR EHENS KALIE METAB OLIC PANEL aspartate aminotransfe rase 19 U/L 15-[address] [facility] (Lab) [address] [place], [address], 10/18/2023 15:10:06 10/18/20 23 10/18/2023 COMPR EHENS KALIE METAB OLIC PANEL bilirubin, total 0.40 mg/dL 0.20-1 .30 Not Available [facility] (Lab) [address] [place], [address], 10/18/2023 15:10:06 10/18/20 23 10/18/2023 COMPR EHENS KALIE METAB OLIC PANEL calcium 9.6 mg/dL 8.4-10 .2 Not Available [facility] (Lab) [address] [place], [address], 10/18/2023 15:10:06 10/18/20 23 10/18/2023 COMPR EHENS KALIE METAB OLIC PANEL total protein 6.5 g/dL 6.3-8. 2 Not Available [facility] (Lab) [address] [place], [address], 10/18/2023 15:10:06 10/18/20 23 10/18/2023 COMPR EHENS KALIE METAB OLIC PANEL albumin 4.0 g/dL 3.0-4. 4 Not Available [facility] (Lab) [address] [place], [address], 10/18/2023 15:10:06 10/18/20 23 10/18/2023 COMPR EHENS KALIE METAB OLIC PANEL globulin 2.5 g/dL 2.6-4. 2 low Not Available [facility] (Lab) [address] [place], [address], 10/18/2023 15:10:06 10/18/20 23 10/18/2023 COMPR EHENS KALIE METAB OLIC PANEL A/G ratio 1.6 ratio 1.0-2. 0 Not Available [facility] (Lab) [address] [place], [address], 10/18/2023 15:10:06 10/18/20 23 10/18/2023 LIPID PANEL cholesterol 148 mg/dL 140-19 9 NIH JENA NSUS RECOM MENDA TION FOR LEONA STERO L: ADULT CHILD LOW RISK: <200 <170 BORDE RLINE : <200- 239 ----- HIGH RISK: >240 >200 Not Available [facility] (Lab) [address] [place], [address], 10/18/2023 15:10:09 10/18/20 23 10/18/2023 LIPID PANEL triglyceride s 168 mg/dL 0-150 high NIH JENA NSUS REPOR T RECOM MENDA TION FOR TRIGL YCERI AUGUSTA: ADULT CHILD LOW RISK: <150 ----- BODER LINE: 150-1 99 ----- HIGH RISK: >200 ----- Not Available [facility] (Lab) [address] [place], [address], 10/18/2023 15:10:09 10/18/20 23 10/18/2023 LIPID PANEL HDL cholesterol 47 mg/dL 40- Not Available [facility] (Lab) [address] [place], [address], 10/18/2023 15:10:09 10/18/20 23 10/18/2023 LIPID PANEL [...] WILL NOT BE REPOR [place]. Not Available [facility] (Lab) [address] [place], [address], 10/18/2023 15:10:09 05/18/20 23 01/06/2023 MRI, lumba r spine , w/o contr ast No observ ation record ed. [email or web address] Not Available 06/20 11:21:47 07/07/20 elect rocar diogr am No observ ation record ed. [facility] [place] [place] [facility] [address] [facility] [address], [place], [address], 07/07/2023 11:57:22 07/07/20 23 07/07/2023 elect rocar diogr am No observ ation record ed. [email or web address] Not Available 2022 12:14:50 10/16/20 elect rocar diogr am No observ ation record ed. cyahl [facility] [place] [place] [facility] [address] [facility] [address], [place], [address], 10/16/2023 17:49:22 10/16/20 23 10/16/2023 elect rocar diogr am No observ ation record ed. BARCODE [facility] [place] [place] [facility] [address], [place], [address], 10/16/2023 17:55:36 Result Notes None recorded. Problems Name Problem SNOMED Code Status Onset Date Resolution Date Notes Provider Name and Address Organization Details Recorded Time Pain in bilateral legs 4260819148341 9108 Active 2021 Not Available [facility] 3 07:04:59 Urinary incontinen ce 017675958 Active 2021 Not Available [facility] 3 07:04:59 Insomnia 343741466 Active 2021 Not Available [facility] 3 07:04:59 Congestive heart failure 18808174 Active 2021 Not Available [facility] 3 07:04:59 Essential hypertensi on 32909795 Active 2021 Not Available [facility] 3 07:04:59 Hyperlipid emia 42072793 Active 2021 Not Available [facility] 3 07:04:59 Spinal stenosis 81247061 Active 2022 Not Available [facility] 3 07:04:59 Cough 94036978 Active 2022 Not Available [facility] 3 07:04:59 Chronic cough 32306896 Active 2022 Not Available [facility] 3 07:04:59 Spinal stenosis of lumbar region 86769089 Active 2022 Not Available [facility] 3 07:04:59 Problem Notes None recorded. Procedures Surgical History Date Name Laterality Status Provider Name and Address Organization Details Recorded Time Breast Biopsy completed Not Available [facility] 01/19/2023 01:06:32 Imaging Results None recorded. Procedure [...] kg/m2 149.86 cm 73 /min 97.2 [degF] 53807.0 1 g 118/74 mm[Hg] Not Available [facility] 3 01:07:00 Date Recorded Body height Body mass index (BMI) Body weight Body temperature Heart rate Oxygen saturation Systolic And Diastolic Provider Name and Address Organization Details Last Updated DateTime 3 149.86 cm 26.5 kg/m2 63343.6 g 97.7 [degF] 80 /min 95 % 128/70 mm[Hg] Kimber Cardoso MA [facility] 3 11:28:08 Date Recorded Body mass index (BMI) Body height Heart rate Body temperature Body weight Systolic And Diastolic Provider Name and Address Organization Details Last Updated DateTime 2 26.5 kg/m2 149.86 cm 77 /min 97.8 [degF] 57355.6 g 124/82 mm[Hg] Not Available [facility] 3 01:07:00 Date Recorded Body height Body mass index (BMI) Body weight Body temperature Heart rate Systolic And Diastolic Provider Name and Address Organization Details Last Updated DateTime 3 149.86 cm 24.4 kg/m2 26864.6 8 g 97.8 [degF] 84 /min 126/74 mm[Hg] Coretta Pastor MA [facility] [employer] 3 17:03:28 Social History Question Answer Notes LastModified by Organization Details LastModified Time Tobacco Smoking Status Former Smoker Not Available [facility] 01/19/2023 01:06:23 Do You Have An Advance Directive? Yes MIGRATION.[id number] Information not available 01/19/2023 Are You Blind Or Do You Have Difficulty Seeing? Yes Wears Glasses MIGRATION.[id number] Information not available 01/19/2023 What Is Your Level Of Caffeine Consumption? Moderate MIGRATION.[id number] Information not available 01/19/2023 In The 14 Days Before Symptom Onset, Have You Had Close Contact With A Laboratory-santoshi rmed COVID-19 While That Case Was Ill? No MIGRATION.0301 [id number] Information not available 01/19/2023 In The 14 Days Before Symptom Onset, Have You Had Close Contact With A Person Who Is Under Investigation For COVID-19 While That Person Was Ill? No MIGRATION.0301 703133 Information not available 01/19/2023 Are You Deaf Or Do You Have Serious Difficulty Hearing? No MIGRATION.0301 [id number] Information not available 01/19/2023 What Type Of Diet Are You Following? REGULAR MIGRATION.0301 624787 Information not available 01/19/2023 Have There Been Any Changes To Your Family Or Social Situation? No Information not available 07/07/2023 When Did You Quit Smoking? 15+yearssincelastc igarette MIGRATION.0301 617285 Information not available 01/19/2023 Do You Use Insect Repellent Routinely? No Information not available 07/07/2023 Where Do You Live? [place]House MIGRATION.0301 937207 Information not available 01/19/2023 Do You Have A Medical Power Of Carton Repairer? No MIGRATION.0301 909733 Information not available 01/19/2023 What Was The Date Of Your Most Recent Tobacco Screening? 10/16/2023 [email or web address] Information not available 10/16/2023 Do You Have Any Pets? No MIGRATION.0301 [id number] Information not available 01/19/2023 What Is Your Relationship Status? MIGRATION.0301 701166 Information not available 01/19/2023 Do You Use Your Seat Belt Or Car Seat Routinely? Yes MIGRATION.0301 378724 Information not available 01/19/2023 Do You Have Smoke And Carbon Monoxide Detectors In Your Home? Yes MIGRATION.0301 590524 Information not available 01/19/2023 At What Age Did You Start Smoking Tobacco? 15 MIGRATION.0301 529158 Information not available 01/19/2023 Are You Passively Exposed To Smoke? No MIGRATION.0301 345517 Information not available 01/19/2023 Are There Any Smokers In Your House? No MIGRATION.0301 185781 Information not available 01/19/2023 Do You Use Sunscreen Routinely? Yes MIGRATION.0301 841023 Information not available 01/19/2023 Have You Recently Traveled Abroad? No MIGRATION.0301 440869 Information not available 01/19/2023 Do You Have Difficulty Walking Or Climbing Stairs? No MIGRATION.0301 376077 Information not available 01/19/2023 Sex: Unknown Functional Status Question Answer Note LastModified by Organizat ion Details LastModified Time Do you use any illicit or recreational drugs? No Information not available 07/07/2023 What is your level of alcohol consumption? None MIGRATION.[id number] 026 Information not available 01/19/2023 Do you have transportation difficulties? No MIGRATION.9435572 026 Information not available 01/19/2023 Are you able to walk independently without assistance or assistive devices? YESWOREST MIGRATION.9020186 026 Information not available 01/19/2023 Do you have difficulty doing errands alone? No MIGRATION.2407149 026 Information not available 01/19/2023 Are you able to care for yourself independently? Yes MIGRATION.8797575 026 Information not available 01/19/2023 Do you have difficulty dressing, bathing, grooming, or toileting? No MIGRATION.1277589 026 Information not available 01/19/2023 What is your exercise level? Occasional MIGRATION.[id number] 026 Information not available 01/19/2023 Mental Status None recorded. Family History Relationship Description Onset Age of this Age Resolved Age Notes LastModified by Organization Details LastModified Time Brother Family history of malignant neoplasm MIGRATION.136 [id number] Not available 01/19/2023 01:06:34 Mother Heart disease MIGRATION.039 [id number] Not available 01/19/2023 01:06:34 Medical History Condition Response NERVE DISEASE N BLINDNESS N RHEUMATIC FEVER N KIDNEY STONES N BLADDER PROBLEMS N MRSA N OTHER # 1 N [...] ARTERY DISEASE (CAD) N ADDICTION CONCERNS N Impotence N ENDOMETRIOSIS N USE OF BLOOD THINNERS N SKIN [...] GLAUCOMA N FOOT PROBLEM N DIVERTICULITIS N SLEEP APNEA N CHICKENPOX N INFECTIOUS DISEASE N PROSTATE N HEART ARRHYTHMIA N INSOMNIA N HIGH CHOLESTEROL / HYPERLIPIDEMIA Y EYE PROBLEMS N HYPERTHYROIDISM N EDEMA N CHRONIC PAIN SYNDROME N HYPOTHYROIDISM N CAROTID BLOCKAGE N CONSTIPATION N BACK / NECK PROBLEMS N HAVE YOU BEEN HOSPITALIZED OR SEEN IN [facility] IN THE PAST YEAR ? N ATHEROSCLEROSIS N BREAST PROBLEMS Y DIALYSIS N ECZEMA N OSTEOPOROSIS N ARTHRITIS Y APPENDICITIS N DIABETES, TYPE N BAD TEETH N ENT N HEARTBURN / REFLUX Y AUTISM SPECTRUM DISORDER (ASD) N HEPATITIS / LIVER DISEASE N GOUT N SLEEP DISORDER N ALZHEIMER'S DISEASE N Brain Problems N DEMENTIA N HERPES N SEIZURES/EPILEPSY N HEADACHES/MIGRAINES N VASCULAR DISEASE N PACEMAKER N Blood Disorder N DIZZINESS N HEART DISEASE/HEART PROBLEMS Y KIDNEY DISEASE N MULTIPLE SCLEROSIS N CANCER: SPECIFY N CARDIAC ARRHYTHMIA N ATRIAL FIBRILLATION N Gall Stones N PULMONARY EMBOLISM N AUTOIMMUNE DISEASE N Gynecological HistoryNo gynecological history recorded. Obstetrics History GPAL:G 0 P 0 0 0 0 Past Encounters Encounter ID Performer Location Encounter Start Date Encounter Closed Date Diagnosis/Indication Diagnosis SNOMED-CT Code Diagnosis ICD10 Code Diagnosis IMO Codes Diagnosis Note [id number] Almas Norris MD [facility] Internal Med [facility] [[email or web address] [address] [address] 05/18/2022 00:00:00 06/04/2022 12:00:23 [id number] Almas Norris MD [facility] Internal Med [facility] [[email or web address]] [address] [address] 09/14/2022 00:00:00 09/14/2022 22:16:35 [id number] Almas Norris MD [facility] Internal Med [facility] [[email or web address]] [address] [address] 01/04/2023 00:00:00 01/08/2023 15:44:23 [id number] Almas Norris MD [facility] Internal Med [facility] [[email or web address]] [address] [address] 05/19/2023 10:40:50 05/19/2023 12:15:02 Hyperlipidemia 96991362 E78.5 Essential hypertension 15041286 I10 Congestive heart failure 02329853 I50.9 Spinal randy nosis of lumbar region 82067250 M48.062 [id number] Almas Norris MD [facility] Internal Med [facility] [address] [facility] [address] [place] [address] 07/07/2023 11:15:31 07/07/2023 12:07:19 Chronic cough 60928058 R05.3 Pre-surger y evaluation 243234178 Z01.803 [id number] Almas Norris MD [facility] Internal Med [facility] [address], [facility] [address] [place] [address] 10/16/2023 15:30:19 10/16/2023 17:50:36 Essential hypertension 38786487 I10 Hyperlipidemia 46675841 E78.5 Spinal randy nosis of lumbar region 15726396 M48.062 Congestive heart failure 12405042 I50.9 Health Concerns Section Related Observation LastModified by Organization Detai ls LastModified Time None Recorded Concern Status LastModified by Organization Details LastModified Time None Recorded Advance Directives Directive Y: Payers Insurance Date Sequence Insurance Name Policy Number Policy Lyons Covered Member ID Lyons Member ID Guarantor Name 11/21/2023 1 [facility] (MEDICARE REPLACEMENT/A DVANTAGE - PPO) [id number] Ella Ann [id number] Ella Ann Notes Date Note Type Note Provider Name and Address Organization Details Recorded Time 3 text/html Spinal stenosis severe with pain but no bowel or bladder continence no numbnessHyperlipidemia she does try to watch her intake of red meatCHF no chest pain or shortness of breathHypertension no headache or dizziness Almas Norris MD [address] [facility], [place], [address], [employer] 05/20/2023 14:23:31 3 text/html Cataract surgery Almas Norris MD [address] [facility], [place], [address], [employer] 07/07/2023 15:31:54 3 text/html We do not have the official notice but she states that she is going surge on her back she has not had any chest pain or shortness of breath no bowel or bladder problem Almas Norris MD [address] [place] [address], [place], [address], [employer] 10/16/2023 23:04:21 OBGyn Episode No OBEpisode recorded.
--- OUTSIDE RECORDS SUMMARY | 2025-11-10 03:45 | XMS_ITS | Clinical Summary ---
Author Organization [facility] Address [address] [place] [address] Care Team Providers Care Mixologist Name Role Phone Almas Norris MD Primary Care Provider [phone] Allergies No known active allergies Medications atorvastatin [...] on file Legal Sex Female 8:05 AM [employer] Gender Identity Not on file Sexual Orientation Not on file Last Filed Vital Signs Vital Sign Reading Time Taken Comments Blood Pressure 131/66 01/08/2024 2:17 PM [employer] Pulse 80 01/08/2024 2:17 PM [employer] Temperature 36.1 C (97 F) 01/08/2024 2:17 PM [employer] Respiratory Rate 12 01/08/2024 2:17 PM [employer] Oxygen Saturation 96% 01/08/2024 2:17 PM [employer] Inhaled Oxygen Concentration - - Weight 57.2 kg (126 lb 1.7 oz) 01/08/2024 6:30 A M [employer] Height 149.9 cm (4' 11) 01/08/2024 6:30 AM [employer] Body Mass Index 25.47 01/08/2024 6:30 AM [employer] Plan of Treatment Health Maintenance Due Date Last Done Comments Zoster Vaccines (1 of 2) 02/07/1994 Pneumococcal Vaccine: 50+ Years (2 of 2 - PCV) 02/22/2008 02/21/2007 Annual Medicare Wellness Visit 02/07/2009 Dexa Scan (General) 02/07/2009 RSV Immunization or 60+ Years (1 - 1-dose 75+ series) 02/07/2019 DTaP, Tdap and Td Vaccines ( 2 - Td or Tdap) 07/21/2022 07/21/2012 COVID-19 Vaccine ( - 2024-2 6 season) 2025 Influenza Adult (#1) 2025 07/29/2013, 07/22/2011, 08/09/2010 Hepatitis A Vaccines Aged Out No long er eligible based on patient's age to complete this topic Meningococcal B Vaccine Aged Out No l onger eligible based on patient's age to complete this topic Meningococcal Vaccine Aged Out No kari rei eligible based on patient's age to complete this topic RSV Immunizations Under 20 Months Aged Out No longer eligible b ased on patient's age to complete this topic Insurance [facility] MEDICARE Care Teams Mixologist Relationship Specialty Start Date End Date Almas Norris MD PCP - General INTERNAL MEDICINE 09/26/23
--- OUTSIDE RECORDS SUMMARY | 2025-11-10 03:45 | XMS_ITS | Data Portability ---
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 Advised to get COVID and pneumococcal vaccine Not available 10/30/2024 22:21:46 03/04/2025 03/04/2025 Blood work has been reviewed does not want to do anything with the knee bring her up-to-date on her Prevnar 20 she will see me back in 4 months continue current therapy diagnosis in the assessment and plan discussed [email or web address] Not available 03/04/2025 13:25:01 07/01/2025 07/01/2025 Continue current therapy screenings immunizations ordered were appropriate and patient agreeable blood work ordered see me in 4 [email or web address] Not available 07/06/2025 13:27:38 07/28/2025 07/28/2025 X-ray of the knee Tylenol [id number] popliteal fossa ultrasound Not available 07/28/2025 22:23:57 Plan of Treatment Reminders Order Date Submit Date Provider Last Modified By Organization Details Last Modified Time Details Appointments ANY 15 2025 09:30A M Tonja Norris MD Not available Not available Not available Lab CBC w/ auto diff 2024 08 025 [facility], [address], [address], [place], [address], 07/02/2025 08:25:58 lipid panel, serum 2024 025 [facility] RECI[facility], [address], [address], [place], [address], 07/02/2025 08:25:55 CMP, serum or plasma 2024 025 [facility], [address], [address], [place], [address], 07/02/2025 08:25:56 lipid panel, serum 2023 024 [facility], [address], [address], [place], [address], 01/31/2025 08:29:51 CMP, serum or plasma 2023 024 [facility], [address], [place], [address], 01/31/2025 08:29:52 CBC w/ auto diff 2023 024 [facility], [facility], [address], [place], [address], 01/31/2025 08:29:54 Referral None recorded. Procedures None recorded. Surgeries None recorded. Imaging XR, knee [address] [facility], [address], [place], [address], 07/30/2025 22:57:53 US, knee - popliteal fossa pain evaluated for bakers cyst. 2024 025 CELE[facility] Perez Scheduling, [address] [facility] [place], [address], 08/29/2025 13:37:51 Medication Orders None recorded. Patient TargetsNo targets recorded. Patient Instructions Encounter Date Encounter Id Patient Instructions Last Modified By Organization Details Last Modified Time 10/29/2024 [id number] A healthy lifestyle: care instructions Not available 10/29/2024 13:05:54 07/01/2025 [id number] A healthy lifestyle: care instructions [email or web address] Not available 07/01/2025 12:40:28 07/28/2025 [id number] A healthy lifestyle: care instructions Not available 07/28/2025 15:20:52 Reason for Referral None Reported. Results Created Date Observation Date Name Description Value Unit Range Abnormal Flag Note LastModifiedBy Organization Detail LastModifiedTime 01/31/2001/31/2025 LIPID PANEL cholesterol, total 127 mg/dL 100-19 9 Not Available [facility] ([facility]) [address] [place], [address], 01/31/2025 08:29:51 01/31/2001/31/2025 LIPID PANEL triglyceride s 134 mg/dL 0-149 Not Available [facility] ([facility]) [address] [place], [address], 01/31/2025 08:29:51 01/31/2001/31/2025 LIPID PANEL HDL cholesterol 38 mg/dL >39 below low normal Not Available [facility] ([facility]) [address] [place], [address], 01/31/2025 08:29:51 01/31/2001/31/2025 LIPID PANEL VLDL cholesterol jay 24 mg/dL 5-40 Not Available [facility] ([facility]) [address] [place], [address], 01/31/2025 08:29:51 01/31/20 25 01/31/2025 LIPID PANEL LDL chol calc ([facility]) 65 mg/dL 0-99 Not Available [facility] ([facility]) [address] [place], [address], 01/31/2025 08:29:51 01/31/20 25 01/31/2025 COMP. METAB OLIC PANEL (14) glucose 86 mg/dL 70-99 Not Available [facility] ([facility]) [address] [place], [address], 01/31/2025 08:29:52 01/31/20 25 01/31/2025 COMP. METAB OLIC PANEL (14) BUN 22 mg/dL 8-27 Not Available [facility] ([facility]) [address] [place], [address], 01/31/2025 08:29:52 01/31/20 25 01/31/2025 COMP. METAB OLIC PANEL (14) creatinine 0.84 mg/dL 0.57-1 .00 Not Available [facility] ([facility]) [address] [place], [address], 01/31/2025 08:29:52 01/31/20 25 01/31/2025 COMP. METAB OLIC PANEL (14) eGFR 70 mL/mi n/1.7 3 >59 Not Available [facility] ([facility]) [address] [place], [address], 01/31/2025 08:29:52 01/31/20 25 01/31/2025 COMP. METAB OLIC PANEL (14) BUN/creatini ne ratio 26 12-28 Not Available [facility] ([facility]) [address] [place], [address], 01/31/2025 08:29:52 01/31/20 25 01/31/2025 COMP. METAB OLIC PANEL (14) sodium 142 mmol/ L 134-14 4 Not Available [facility] ([facility]) [address] [place], [address], 01/31/2025 08:29:52 01/31/20 25 01/31/2025 COMP. METAB OLIC PANEL (14) potassium 4.3 mmol/ L 3.5-5. 2 Not Available [facility] ([facility]) [address] [place], [address], 01/31/2025 08:29:52 01/31/20 25 01/31/2025 COMP. METAB OLIC PANEL (14) chloride 106 mmol/ L 96-106 Not Available [facility] ([facility] [address] [facility] [place], [address], 01/31/2025 08:29:52 01/31/20 25 01/31/2025 COMP. METAB OLIC PANEL (14) carbon dioxide, total 24 mmol/ L 20-29 Not Available [facility] ([facility]) [address] [facility] [place], [address], 01/31/2025 08:29:52 01/31/20 25 01/31/2025 COMP. METAB OLIC PANEL (14) calcium 9.2 mg/dL 8.7-10 .3 Not Available [facility] ([facility]) [address] [facility] [place], [address], 01/31/2025 08:29:52 01/31/20 25 01/31/2025 COMP. METAB OLIC PANEL (14) protein, total 5.7 g/dL 6.0-8. 5 below low normal Not Available [facility] ([facility]) [address] [facility] [place], [address], 01/31/2025 08:29:52 01/31/20 25 01/31/2025 COMP. METAB OLIC PANEL (14) albumin 4.0 g/dL 3.8-4. 8 Not Available [facility] ([facility]) [address] [facility] [place], [address], 01/31/2025 08:29:52 01/31/20 25 01/31/2025 COMP. METAB OLIC PANEL (14) globulin, total 1.7 g/dL 1.5-4. 5 Not Available [facility] ([facility]) [address] [facility] [place], [address], 01/31/2025 08:29:52 01/31/20 25 01/31/2025 COMP. METAB OLIC PANEL (14) bilirubin, total 0.6 mg/dL 0.0-1. 2 Not Available [facility] ([facility]) [address] [facility] [place], [address], 01/31/2025 08:29:52 01/31/20 25 01/31/2025 COMP. METAB OLIC PANEL (14) alkaline phosphatase 144 IU/L 44-121 above high normal Not Available [facility] ([facility]) [address] [facility] [place], [address], 01/31/2025 08:29:52 01/31/20 25 01/31/2025 COMP. METAB OLIC PANEL (14) AST (SGOT) 19 IU/L 0-40 Not Available [facility] ([facility]) [address] [facility] [place], [address], 01/31/2025 08:29:52 01/31/20 25 01/31/2025 COMP. METAB OLIC PANEL (14) ALT (SGPT) 14 IU/L 0-32 Not Available [facility] ([facility]) [address] [facility] [place], [address], 01/31/2025 08:29:52 01/31/20 25 01/31/2025 CBC WITH DIFFE RENTI AL/PL ATELE T WBC 6.7 x10e3 /uL 3.4-10 .8 Not Available [facility] ([facility]) [address] [facility] [place], [address], 01/31/2025 08:29:54 01/31/20 25 01/31/2025 CBC WITH DIFFE RENTI AL/PL ATELE T RBC 4.53 x10e6 /uL 3.77-5 .28 Not Available [facility] ([facility]) [address] [facility] [place], [address], 01/31/2025 08:29:54 01/31/20 25 01/31/2025 CBC WITH DIFFE RENTI AL/PL ATELE T hemoglobin 13.4 g/dL 11.1-1 5.9 Not Available [facility] ([facility]) [address] [facility] [place], [address], 01/31/2025 08:29:54 01/31/20 25 01/31/2025 CBC WITH DIFFE RENTI AL/PL ATELE T hematocrit 42.8 % 34.0-4 6.6 Not Available [facility] ([facility]) [address] [place], [address], 01/31/2025 08:29:54 01/31/20 25 01/31/2025 CBC WITH DIFFE RENTI AL/PL ATELE T MCV 95 fL 79-97 Not Available [facility] ([facility]) [address] [facility], [place], [address], 01/31/2025 08:29:54 01/31/20 25 01/31/2025 CBC WITH DIFFE RENTI AL/PL ATELE T MCH 29.6 pg 26.6-3 3.0 Not Available [facility] ([facility]) [address] [place], [address], 01/31/2025 08:29:54 01/31/20 25 01/31/2025 CBC WITH DIFFE RENTI AL/PL ATELE T MCHC 31.3 g/dL 31.5-3 5.7 below low normal Not Available [facility] ([facility]) [address] [place], [address], 01/31/2025 08:29:54 01/31/20 25 01/31/2025 CBC WITH DIFFE RENTI AL/PL ATELE T RDW 12.7 % 11.7-1 5.4 Not Available [facility] ([facility]) [address] [place], [address], 01/31/2025 08:29:54 01/31/20 25 01/31/2025 CBC WITH DIFFE RENTI AL/PL ATELE T platelets 247 x10e3 /uL 150-45 0 Not Available [facility] ([facility]) [address] [facility], [place], [address], 01/31/2025 08:29:54 01/31/20 25 01/31/2025 CBC WITH DIFFE RENTI AL/PL ATELE T neutrophils 60 % notest ab. Not Available [facility] ([facility]) [address] [facility], [place], [address], 01/31/2025 08:29:54 01/31/20 25 01/31/2025 CBC WITH DIFFE RENTI AL/PL ATELE T lymphs 30 % notest ab. Not Available [facility] ([facility]) [address] [facility], [place], [address], 01/31/2025 08:29:54 01/31/20 25 01/31/2025 CBC WITH DIFFE RENTI AL/PL ATELE T monocytes 6 % notest ab. Not Available [facility] ([facility]) [address] [facility], [place], [address], 01/31/2025 08:29:54 01/31/20 25 01/31/2025 CBC WITH DIFFE RENTI AL/PL ATELE T eos 2 % notest ab. Not Available [facility] ([facility]) [address] [facility], [place], [address], 01/31/2025 08:29:54 01/31/20 25 01/31/2025 CBC WITH DIFFE RENTI AL/PL ATELE T basos 1 % notest ab. Not Available [facility] ([facility]) [address] [facility], [place], [address], 01/31/2025 08:29:54 01/31/20 25 01/31/2025 CBC WITH DIFFE RENTI AL/PL ATELE T neutrophils (absolute) 4.1 x10e3 /uL 1.4-7. 0 Not Available [facility] ([facility]) [address] [facility], [place], [address], 01/31/2025 08:29:54 01/31/20 25 01/31/2025 CBC WITH DIFFE RENTI AL/PL ATELE T lymphs (absolute) 2.0 x10e3 /uL 0.7-3. 1 Not Available [facility] ([facility]) [address] [facility], [place], [address], 01/31/2025 08:29:54 01/31/20 25 01/31/2025 CBC WITH DIFFE RENTI AL/PL ATELE T monocytes(ab solute) 0.4 x10e3 /uL 0.1-0. 9 Not Available [facility] ([facility]) [address] [facility], [place], [address], 01/31/2025 08:29:54 01/31/20 25 01/31/2025 CBC WITH DIFFE RENTI AL/PL ATELE T eos (absolute) 0.2 x10e3 /uL 0.0-0. 4 Not Available [facility] ([facility]) [address] [facility], [place], [address], 01/31/2025 08:29:54 01/31/20 25 01/31/2025 CBC WITH DIFFE RENTI AL/PL ATELE T baso (absolute) 0.1 x10e3 /uL 0.0-0. 2 Not Available [facility] ([facility]) [address] [place], [address], 01/31/2025 08:29:54 01/31/20 25 01/31/2025 CBC WITH DIFFE RENTI AL/PL ATELE T immature granulocytes 1 % notest ab. Not Available [facility] ([facility]) [address] [place], [address], 01/31/2025 08:29:54 01/31/20 25 01/31/2025 CBC WITH DIFFE RENTI AL/PL ATELE T immature grans (abs) 0.0 x10e3 /uL 0.0-0. 1 Not Available [facility] ([facility]) [address] [facility], [place], [address], 01/31/2025 08:29:54 07/01/20 25 07/02/2025 LIPID PANEL cholesterol, total 120 mg/dL 100-19 9 Not Available [facility] ([facility]) [address] [place], [address], 07/02/2025 08:25:55 07/01/20 25 07/02/2025 LIPID PANEL triglyceride s 107 mg/dL 0-149 Not Available [facility] ([facility]) [address] [place], [address], 07/02/2025 08:25:55 07/01/20 25 07/02/2025 LIPID PANEL HDL cholesterol 39 mg/dL >39 below low normal Not Available [facility] ([facility]) [address] [place], [address], 07/02/2025 08:25:55 07/01/20 25 07/02/2025 LIPID PANEL VLDL cholesterol jay 20 mg/dL 5-40 Not Available [facility] ([facility]) [address] [place], [address], 07/02/2025 08:25:55 07/01/20 25 07/02/2025 LIPID PANEL LDL chol calc ([facility]) 61 mg/dL 0-99 Not Available [facility] ([facility]) [address] [place], [address], 07/02/2025 08:25:55 07/01/20 25 07/01/2025 COMP. METAB OLIC PANEL (14) interpretati on: COMMEN T GFR estim ate at the follo wing level for >or=3 month s is class ified as follo ws: GFR WITH KIDNE Y DAMAG E WITHO UT KIDNE Y DAMAG E >or=9 0 Stage 1 Beth l 60-89 Stage 2 Decr eased GFR 30-59 Stage 3 Stage 3 15-29 Stage 4 Stage 4 <15 (or dialy sis) Stage 5 Stage 5 Estim ated GFR will over estim ate true GFR if serum creat inine is risin g as in acute renal failu re and will under estim ate true GFR if serum creat inine is decli archana as in resol ving acute renal failu re. Addit ional infor matio n may be found at [email or web address] [email or web address] org. Not Available [facility] ([facility]) [address] [place], [address], 07/02/2025 08:25:56 07/01/20 25 07/02/2025 COMP. METAB OLIC PANEL (14) glucose 98 mg/dL 70-99 Not Available [facility] ([facility]) [address] [place], [address], 07/02/2025 08:25:56 07/01/20 25 07/02/2025 COMP. METAB OLIC PANEL (14) BUN 13 mg/dL 8-27 Not Available [facility] ([facility]) [address] [place], [address], 07/02/2025 08:25:56 07/01/20 25 07/02/2025 COMP. METAB OLIC PANEL (14) creatinine 0.98 mg/dL 0.57-1 .00 Not Available [facility] ([facility]) [address] [place], [address], 07/02/2025 08:25:56 07/01/20 25 07/02/2025 COMP. METAB OLIC PANEL (14) eGFR 58 mL/mi n/1.7 3 >59 below low normal Not Available [facility] ([facility]) [address] [place], [address], 07/02/2025 08:25:56 07/01/20 25 07/02/2025 COMP. METAB OLIC PANEL (14) BUN/creatini ne ratio 13 - Not Available [facility] ([facility]) [address] [facility], [place], [address], 07/02/2025 08:25:56 07/01/20 25 07/02/2025 COMP. METAB OLIC PANEL (14) sodium 142 mmol/ L 134-14 4 Not Available [facility] ([facility]) [address] [facility], [place], [address], 07/02/2025 08:25:56 07/01/20 25 07/02/2025 COMP. METAB OLIC PANEL (14) potassium 4.4 mmol/ L 3.5-5. 2 Not Available [facility] ([facility]) [address] [place], [address], 07/02/2025 08:25:56 07/01/20 25 07/02/2025 COMP. METAB OLIC PANEL (14) chloride 105 mmol/ L 96-106 Not Available [facility] ([facility]) [address] [place], [address], 07/02/2025 08:25:56 07/01/20 25 07/02/2025 COMP. METAB OLIC PANEL (14) carbon dioxide, total 22 mmol/ L 20-29 Not Available [facility] ([facility]) [address] [place], [address], 07/02/2025 08:25:56 07/01/20 25 07/02/2025 COMP. METAB OLIC PANEL (14) calcium 9.4 mg/dL 8.7-10 .3 Not Available [facility] ([facility]) [address] [place], [address], 07/02/2025 08:25:56 07/01/20 25 07/02/2025 COMP. METAB OLIC PANEL (14) protein, total 6.2 g/dL 6.0-8. 5 Not Available [facility] ([facility]) [address] [place], [address], 07/02/2025 08:25:56 07/01/20 25 07/02/2025 COMP. METAB OLIC PANEL (14) albumin 4.3 g/dL 3.7-4. 7 Not Available [facility] ([facility]) [address] [place], [address], 07/02/2025 08:25:56 07/01/20 25 07/02/2025 COMP. METAB OLIC PANEL (14) globulin, total 1.9 g/dL 1.5-4. 5 Not Available [facility] ([facility]) [address] [place], [address], 07/02/2025 08:25:56 07/01/20 25 07/02/2025 COMP. METAB OLIC PANEL (14) bilirubin, total 0.6 mg/dL 0.0-1. 2 Not Available [facility] ([facility]) [address] [place], [address], 07/02/2025 08:25:56 07/01/20 25 07/02/2025 COMP. METAB OLIC PANEL (14) alkaline phosphatase 133 IU/L 44-121 above high normal Not Available [facility] ([facility]) [address] [place], [address], 07/02/2025 08:25:56 07/01/20 25 07/02/2025 COMP. METAB OLIC PANEL (14) AST (SGOT) 18 IU/L 0-40 Not Available [facility] ([facility]) [address] [place], [address], 07/02/2025 08:25:56 07/01/20 25 07/02/2025 COMP. METAB OLIC PANEL (14) ALT (SGPT) 9 IU/L 0-32 Not Available [facility] ([facility]) [address] [place], [address], 07/02/2025 08:25:56 07/01/2007/02/2025 CBC WITH DIFFE RENTI AL/PL ATELE T WBC 8.0 x10e3 /uL 3.4-10 .8 Not Available [facility] ([facility]) [address] [facility], [place], [address], 07/02/2025 08:25:58 07/01/2007/02/2025 CBC WITH DIFFE RENTI AL/PL ATELE T RBC 4.79 x10e6 /uL 3.77-5 .28 Not Available [facility] ([facility]) [address] [facility], [place], [address], 07/02/2025 08:25:58 07/01/2007/02/2025 CBC WITH DIFFE RENTI AL/PL ATELE T hemoglobin 14.4 g/dL 11.1-1 5.9 Not Available [facility] ([facility]) [address] [place], [address], 07/02/2025 08:25:58 07/01/20 25 07/02/2025 CBC WITH DIFFE RENTI AL/PL ATELE T hematocrit 44.9 % 34.0-4 6.6 Not Available [facility] ([facility]) [address] [place], [address], 07/02/2025 08:25:58 07/01/2007/02/2025 CBC WITH DIFFE RENTI AL/PL ATELE T MCV 94 fL 79-97 Not Available [facility] ([facility]) [address] [place], [address], 07/02/2025 08:25:58 07/01/20 25 07/02/2025 CBC WITH DIFFE RENTI AL/PL ATELE T MCH 30.1 pg 26.6-3 3.0 Not Available [facility] ([facility]) [address] [facility], [place], [address], 07/02/2025 08:25:58 07/01/20 25 07/02/2025 CBC WITH DIFFE RENTI AL/PL ATELE T MCHC 32.1 g/dL 31.5-3 5.7 Not Available [facility] ([facility]) [address] [facility], [place], [address], 07/02/2025 08:25:58 07/01/20 25 07/02/2025 CBC WITH DIFFE RENTI AL/PL ATELE T RDW 12.8 % 11.7-1 5.4 Not Available [facility] ([facility]) [address] [facility], [place], [address], 07/02/2025 08:25:58 07/01/20 25 07/02/2025 CBC WITH DIFFE RENTI AL/PL ATELE T platelets 233 x10e3 /uL 150-45 0 Not Available [facility] ([facility]) [address] [facility], [place], [address], 07/02/2025 08:25:58 07/01/20 25 07/02/2025 CBC WITH DIFFE RENTI AL/PL ATELE T neutrophils 74 % notest ab. Not Available [facility] ([facility]) [address] [facility], [place], [address], 07/02/2025 08:25:58 07/01/20 25 07/02/2025 CBC WITH DIFFE RENTI AL/PL ATELE T lymphs 18 % notest ab. Not Available [facility] ([facility]) [address] [facility], [place], [address], 07/02/2025 08:25:58 07/01/20 25 07/02/2025 CBC WITH DIFFE RENTI AL/PL ATELE T monocytes 6 % notest ab. Not Available [facility] ([facility]) [address] [facility], [place], [address], 07/02/2025 08:25:58 07/01/2007/02/2025 CBC WITH DIFFE RENTI AL/PL ATELE T eos 1 % notest ab. Not Available [facility] ([facility]) [address] [facility], [place], [address], 07/02/2025 08:25:58 07/01/20 25 07/02/2025 CBC WITH DIFFE RENTI AL/PL ATELE T basos 1 % notest ab. Not Available [facility] ([facility]) [address] [facility], [place], [address], 07/02/2025 08:25:58 07/01/20 25 07/02/2025 CBC WITH DIFFE RENTI AL/PL ATELE T neutrophils (absolute) 5.9 x10e3 /uL 1.4-7. 0 Not Available [facility] ([facility]) [address] [facility], [place], [address], 07/02/2025 08:25:58 07/01/20 25 07/02/2025 CBC WITH DIFFE RENTI AL/PL ATELE T lymphs (absolute) 1.4 x10e3 /uL 0.7-3. 1 Not Available [facility] ([facility]) [address] [place], [address], 07/02/2025 08:25:58 07/01/2007/02/2025 CBC WITH DIFFE RENTI AL/PL ATELE T monocytes(ab solute) 0.5 x10e3 /uL 0.1-0. 9 Not Available [facility] ([facility]) [address] [place], [address], 07/02/2025 08:25:58 07/01/20 25 07/02/2025 CBC WITH DIFFE RENTI AL/PL ATELE T eos (absolute) 0.1 x10e3 /uL 0.0-0. 4 Not Available [facility] ([facility]) [address] [facility], [place], [address], 07/02/2025 08:25:58 07/01/20 25 07/02/2025 CBC WITH DIFFE RENTI AL/PL ATELE T baso (absolute) 0.1 x10e3 /uL 0.0-0. 2 Not Available [facility] ([facility]) [address] [facility], [place], [address], 07/02/2025 08:25:58 07/01/20 25 07/02/2025 CBC WITH DIFFE RENTI AL/PL ATELE T immature granulocytes 0 % notest ab. Not Available [facility] ([facility]) [address] [facility], [place], [address], 07/02/2025 08:25:58 07/01/20 25 07/02/2025 CBC WITH DIFFE RENTI AL/PL ATELE T immature grans (abs) 0.0 x10e3 /uL 0.0-0. 1 Not Available [facility] ([facility]) [address] [facility], [place], [address], 07/02/2025 08:25:58 10/21/20 25 10/21/2025 COMP. METAB OLIC PANEL (14) interpretati on: COMMEN T GFR estim ate at the follo wing level for >or=3 month s is class ified as follo ws: GFR WITH KIDNE Y DAMAG E WITHO UT KIDNE Y DAMAG E >or=9 0 Stage 1 Beth l 60-89 Stage 2 Decr eased GFR 30-59 Stage 3 Stage 3 15-29 Stage 4 Stage 4 <15 (or dialy sis) Stage 5 Stage 5 Estim ated GFR will over estim ate true GFR if serum creat inine is risin g as in acute renal failu re and will under estim ate true GFR if serum creat inine is decli archana as in resol ving acute renal failu re. Addit ional infor jen lockhart may be found at [email or web address] org. Not Available [facility] ([facility]) [address] [facility] [place], [address], 10/22/2025 09:28:37 10/21/20 25 10/22/2025 COMP. METAB OLIC PANEL (14) glucose 122 mg/dL 70-99 above high normal Not Available [facility] ([facility]) [address] [facility] [place], [address], 10/22/2025 09:28:37 10/21/20 25 10/22/2025 COMP. METAB OLIC PANEL (14) BUN 15 mg/dL 8-27 Not Available [facility] ([facility]) [address] [facility] [place], [address], 10/22/2025 09:28:37 10/21/20 25 10/22/2025 COMP. METAB OLIC PANEL (14) creatinine 0.85 mg/dL 0.57-1 .00 Not Available [facility] ([facility]) [address] [facility] [place], [address], 10/22/2025 09:28:37 10/21/20 25 10/22/2025 COMP. METAB OLIC PANEL (14) eGFR 69 mL/mi n/1.7 3 >59 Not Available [facility] ([facility]) [address] [facility] [place], [address], 10/22/2025 09:28:37 10/21/20 25 10/22/2025 COMP. METAB OLIC PANEL (14) BUN/creatini ne ratio 18 12-28 Not Available [facility] ([facility]) [address] [facility] [place], [address], 10/22/2025 09:28:37 10/21/20 25 10/22/2025 COMP. METAB OLIC PANEL (14) sodium 142 mmol/ L 134-14 4 Not Available [facility] ([facility]) [address] [facility] [place], [address], 10/22/2025 09:28:37 10/21/20 25 10/22/2025 COMP. METAB OLIC PANEL (14) potassium 4.4 mmol/ L 3.5-5. 2 Not Available [facility] ([facility]) [address] [facility] [place], [address], 10/22/2025 09:28:37 10/21/20 25 10/22/2025 COMP. METAB OLIC PANEL (14) chloride 104 mmol/ L 96-106 Not Available [facility] ([facility]) [address], [place], [address], 10/22/2025 09:28:37 10/21/20 25 10/22/2025 COMP. METAB OLIC PANEL (14) carbon dioxide, total 26 mmol/ L 20-29 Not Available [facility] ([facility]) [address] [facility] [place], [address], 10/22/2025 09:28:37 10/21/20 25 10/22/2025 COMP. METAB OLIC PANEL (14) calcium 9.7 mg/dL 8.7-10 .3 Not Available [facility] ([facility]) [address] [facility] [place], [address], 10/22/2025 09:28:37 10/21/20 25 10/22/2025 COMP. METAB OLIC PANEL (14) protein, total 6.1 g/dL 6.0-8. 5 Not Available [facility] ([facility]) [address] [facility] [place], [address], 10/22/2025 09:28:37 10/21/20 25 10/22/2025 COMP. METAB OLIC PANEL (14) albumin 4.2 g/dL 3.7-4. 7 Not Available [facility] ([facility]) [address] [facility] [place], [address], 10/22/2025 09:28:37 10/21/20 25 10/22/2025 COMP. METAB OLIC PANEL (14) globulin, total 1.9 g/dL 1.5-4. 5 Not Available [facility] ([facility]) [address] [facility], [place], [address], 10/22/2025 09:28:37 10/21/20 25 10/22/2025 COMP. METAB OLIC PANEL (14) bilirubin, total 0.5 mg/dL 0.0-1. 2 Not Available [facility] ([facility]) [address] [facility], [place], [address], 10/22/2025 09:28:37 10/21/20 25 10/22/2025 COMP. METAB OLIC PANEL (14) alkaline phosphatase 104 IU/L 48-129 Not Available [facility] ([facility]) [address] [facility], [place], [address], 10/22/2025 09:28:37 10/21/20 25 10/22/2025 COMP. METAB OLIC PANEL (14) AST (SGOT) 22 IU/L 0-40 Not Available [facility] ([facility]) [address] [facility], [place], [address], 10/22/2025 09:28:37 10/21/20 25 10/22/2025 COMP. METAB OLIC PANEL (14) ALT (SGPT) 16 IU/L 0-32 Not Available [facility] ([facility]) [address] [facility], [place], [address], 10/22/2025 09:28:37 10/21/20 25 10/22/2025 CBC WITH DIFFE RENTI AL/PL ATELE T WBC 7.9 x10e3 /uL 3.4-10 .8 Not Available [facility] ([facility]) [address] [facility], [place], [address], 10/22/2025 09:28:38 10/21/20 25 10/22/2025 CBC WITH DIFFE RENTI AL/PL ATELE T RBC 4.58 x10e6 /uL 3.77-5 .28 Not Available [facility] ([facility]) [address] [facility], [place], [address], 10/22/2025 09:28:38 10/21/20 25 10/22/2025 CBC WITH DIFFE RENTI AL/PL ATELE T hemoglobin 14.2 g/dL 11.1-1 5.9 Not Available [facility] ([facility]) [address] [place], [address], 10/22/2025 09:28:38 10/21/20 25 10/22/2025 CBC WITH DIFFE RENTI AL/PL ATELE T hematocrit 43.2 % 34.0-4 6.6 Not Available [facility] ([facility]) [address] [place], [address], 10/22/2025 09:28:38 10/21/20 25 10/22/2025 CBC WITH DIFFE RENTI AL/PL ATELE T MCV 94 fL 79-97 Not Available [facility] ([facility]) [address] [place], [address], 10/22/2025 09:28:38 10/21/20 25 10/22/2025 CBC WITH DIFFE RENTI AL/PL ATELE T MCH 31.0 pg 26.6-3 3.0 Not Available [facility] ([facility]) [address] [place], [address], 10/22/2025 09:28:38 10/21/20 25 10/22/2025 CBC WITH DIFFE RENTI AL/PL ATELE T MCHC 32.9 g/dL 31.5-3 5.7 Not Available [facility] ([facility]) [address] [place], [address], 10/22/2025 09:28:38 10/21/20 25 10/22/2025 CBC WITH DIFFE RENTI AL/PL ATELE T RDW 14.1 % 11.7-1 5.4 Not Available [facility] ([facility]) [address] [facility], [place], [address], 10/22/2025 09:28:38 10/21/20 25 10/22/2025 CBC WITH DIFFE RENTI AL/PL ATELE T platelets 270 x10e3 /uL 150-45 0 Not Available [facility] ([facility]) [address] [facility], [place], [address], 10/22/2025 09:28:38 10/21/20 25 10/22/2025 CBC WITH DIFFE RENTI AL/PL ATELE T neutrophils 68 % notest ab. Not Available [facility] ([facility]) [address] [facility], [place], [address], 10/22/2025 09:28:38 10/21/20 25 10/22/2025 CBC WITH DIFFE RENTI AL/PL ATELE T lymphs 23 % notest ab. Not Available [facility] ([facility]) [address] [facility], [place], [address], 10/22/2025 09:28:38 10/21/20 25 10/22/2025 CBC WITH DIFFE RENTI AL/PL ATELE T monocytes 7 % notest ab. Not Available [facility] ([facility]) [address] [facility], [place], [address], 10/22/2025 09:28:38 10/21/20 25 10/22/2025 CBC WITH DIFFE RENTI AL/PL ATELE T eos 0 % notest ab. Not Available [facility] ([facility]) [address] [facility], [place], [address], 10/22/2025 09:28:38 10/21/20 25 10/22/2025 CBC WITH DIFFE RENTI AL/PL ATELE T basos 1 % notest ab. Not Available [facility] ([facility]) [address] [facility], [place], [address], 10/22/2025 09:28:38 10/21/20 25 10/22/2025 CBC WITH DIFFE RENTI AL/PL ATELE T neutrophils (absolute) 5.4 x10e3 /uL 1.4-7. 0 Not Available [facility] ([facility]) [address] [facility], [place], [address], 10/22/2025 09:28:38 10/21/20 25 10/22/2025 CBC WITH DIFFE RENTI AL/PL ATELE T lymphs (absolute) 1.8 x10e3 /uL 0.7-3. 1 Not Available [facility] ([facility]) [address] [facility], [place], [address], 10/22/2025 09:28:38 10/21/20 25 10/22/2025 CBC WITH DIFFE RENTI AL/PL ATELE T monocytes(ab solute) 0.5 x10e3 /uL 0.1-0. 9 Not Available [facility] ([facility]) [address] [facility], [place], [address], 10/22/2025 09:28:38 10/21/20 25 10/22/2025 CBC WITH DIFFE RENTI AL/PL ATELE T eos (absolute) 0.0 x10e3 /uL 0.0-0. 4 Not Available [facility] ([facility]) [address] [facility], [place], [address], 10/22/2025 09:28:38 10/21/20 25 10/22/2025 CBC WITH DIFFE RENTI AL/PL ATELE T baso (absolute) 0.1 x10e3 /uL 0.0-0. 2 Not Available [facility] ([facility]) [address] [facility], [place], [address], 10/22/2025 09:28:38 10/21/20 25 10/22/2025 CBC WITH DIFFE RENTI AL/PL ATELE T immature granulocytes 1 % notest ab. Not Available [facility] ([facility]) [address] [facility], [place], [address], 10/22/2025 09:28:38 10/21/20 25 10/22/2025 CBC WITH DIFFE RENTI AL/PL ATELE T immature grans (abs) 0.1 x10e3 /uL 0.0-0. 1 Not Available [facility] ([facility]) [address] [facility], [place], [address], 10/22/2025 09:28:38 07/28/20 25 07/28/2025 XR, knee No observ ation record ed. [address], [place], [address], 07/29/2025 10:07:09 08/22/20 25 08/22/2025 US, knee No observ ation record ed. [address], [place], [address], 08/29/2025 15:44:35 08/22/20 25 08/22/2025 US, knee No observ ation record ed. [address], [place], [address], 08/29/2025 15:44:35 10/07/20 25 10/07/2025 MRI, knee, w/o contr ast No observ ation record ed. [facility] [address], [place], [address], 10/11/2025 16:21:07 11/04/20 elect rocar diogr am No observ ation record ed. [facility] In-Office Order Internal Use Only DO Not Attach Compendium DO Not Attach Compendium, Do Not Delete/merge, [id number] 11/04/2025 10:39:14 11/04/20 25 10/21/2025 elect rocar diogr am No observ ation record ed. [facility] In-Office Order Internal Use Only DO Not Attach Compendium DO Not Attach Compendium, Do Not Delete/merge, [id number] 11/04/2025 10:50:07 Result Notes None recorded. Problems Name Problem SNOMED Code Status Onset Date Resolution Date Notes Provider Name and Address Organization Details Recorded Time Congestive heart failure 27621731 Active 2023 Tonja Norris MD Attn: Angeline vivar,[address] [facility], [place], [address], [place] [facility] 4 15:03:45 Hyperlipide ronni 07083320 Active 2023 Tonja Norris MD Attn: Angeline vivar,[address] [place], [address], [place] [facility] 4 15:03:46 Essential hypertensio n 81188118 Active 2023 Tonja Norris MD Attn: Angeline vivar,[address] [place], [address], [place] [facility] 4 15:03:48 Spinal stenosis of lumbar region 32247548 Active 2023 Tonja Norris MD Attn: Angeline vivar,[address] 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 Procedures Surgical History Date Name Laterality Status Provider Name and Address Organization Details Recorded Time Breast Surgery completed Diann Albright [place] - [facility] 02/20/2024 14:50:12 Imaging Results None recorded. Procedure Notes None recorded. Medical Equipment None Reported. Allergies No known drug allergies Medications Name Sig Start Date Stop Date Status Note LastModified by Organization Details LastModified Time furosemide 40 mg tablet active Not Available Not Available Not Available atorvastati n 40 mg tablet active Not Available Not Available Not Available prednisone 10 mg tablet TAKE 1 TABLET BY MOUTH TWICE DAILY FOR 10 DAYS 10/21 completed Not Available Not Available Not Available carvedilol 12.5 mg tablet active Not Available Not Available Not Available tizanidine 2 mg tablet 02/19 completed Not Available Not Available Not Available benzonatate 200 mg capsule TAKE 1 CAPSULE BY MOUTH THREE TIMES DAILY NEEDED 02/19 completed Not Available Not Available Not Available hydrocodone 5 mg-acetamin ophen 325 mg tablet TAKE 1 TABLET BY MOUTH EVERY 6 HOURS AFTER PROCEDURE NEEDED FOR PAIN OR ACUTE PAIN 02/19 completed Not Available Not Available Not Available valsartan 80 mg tablet active Not Available Not Available Not Available spironolact one 25 mg tablet active Not Available Not Available Not Available ketorolac 0.5 % eye drops 02/19 completed Not Available Not Available Not Available prednisolon e acetate 1 % eye drops,suspe nsion 02/19 completed Not Available Not Available Not Available ciprofloxac in 0.3 % eye drops 02/19 completed Not Available Not Available Not Available furosemide 20 mg tablet 02/19 completed Not Available Not Available Not Available gabapentin 100 mg capsule TAKE 1 CAPSULE BY MOUTH AT BEDTIME 02/19 completed Not Available Not Available Not Available methylpredn isolone 4 mg tablets in a dose pack FOLLOW PACKAGE DIRECTION S 02/19 completed Not Available Not Available Not Available hydroxyzine pamoate 25 mg capsule TAKE 1 CAPSULE BY MOUTH EVERY DAY AT BEDTIME 02/19 completed Not Available Not Available Not Available omeprazole 20 mg tablet,wilmar yed release TAKE 1 TABLET BY MOUTH ONCE DAILY active Not Available Not Available No t Available Stimulant Laxative Plus 8.6 mg-50 mg tablet TAKE 1 TABLET BY MOUTH DAILY 10/29 completed Not Available Not Available Not Available Jardiance 10 mg tablet 10/21 completed Not Available Not Available Not Available Vitals Date Recorded Body height Body mass index (BMI) Body weight Heart rate Oxygen saturation Systolic And Diastolic Provider Name and Address Organization Details Last Updated DateTime 5 149.86 cm 27.9 kg/m2 39605.7 5 g 80 /min 96 % 126/68 mm[Hg] Kayla Whitman MA [facility] 5 11:08:38 Date Recorded Body height Body mass index (BMI) Body weight Heart rate Oxygen saturation Systolic And Diastolic Provider Name and Address Organization Details Last Updated DateTime 5 149.86 cm 27.1 kg/m2 92664.7 4 g 77 /min 95 % 112/72 mm[Hg] Arlette Deras MA [facility] 5 11:22:19 Date Recorded Body height Body mass index (BMI) Body weight Heart rate Oxygen saturation Systolic And Diastolic Provider Name and Address Organization Details Last Updated DateTime 5 149.86 cm 27.1 kg/m2 25172.8 1 g 75 /min 96 % 122/70 mm[Hg] Arlette Deras MA [facility] 5 14:14:16 Date Recorded Body height Body mass index (BMI) Body weight Heart rate Oxygen saturation Systolic And Diastolic Provider Name and Address Organization Details Last Updated DateTime 5 149.86 cm 27.3 kg/m2 71144.9 7 g 87 /min 97 % 126/76 mm[Hg] Arlette Deras MA [facility] 5 14:02:14 Date Recorded Body height Body mass index (BMI) Body weight Heart rate Oxygen saturation Systolic And Diastolic Provider Name and Address Organization Details Last Updated DateTime 4 149.86 cm 27.6 kg/m2 48837.7 2 g 74 /min 95 % 122/76 mm[Hg] Arlette Deras MA [facility] 4 11:11:42 Social History Question Answer Notes LastModified by Organizat ion Details LastModified Time Tobacco Smoking Status Former Smoker quit 1989 Arlette Deras MA null, [facility] 10/21/2025 14:03:54 Do You Have An Advance Directive? Yes Information not available 06/25/2024 Are You Blind Or Do You Have Difficulty Seeing? No Information not available 02/20/2024 What Is Your Level Of Caffeine Consumption? Moderate Coffee Information not available 06/25/2024 In The 14 Days Before Symptom Onset, Have You Had Close Contact With A Laboratory-confir med COVID-19 While That Case Was Ill? No Information not available 06/25/2024 In The 14 Days Before Symptom Onset, Have You Had Close Contact With A Person Who Is Under Investigation For COVID-19 While That Person Was Ill? No Information not available 06/25/2024 Have You Been To An Area Known To Be High Risk For COVID-19? No Information not available 06/25/2024 Are You Deaf Or Do You Have Serious Difficulty Hearing? No Information not available 02/20/2024 Are There Any Guns Present In Your Home? No Information not available 06/25/2024 What Was The Date Of Your Most Recent Tobacco Screening? 10/21/2025 Information not available 10/21/2025 What Is Your Relationship Status? Information not available 02/20/2024 Do You Use Your Seat Belt Or Car Seat Routinely? Yes Information not available 02/20/2024 Do You Have Smoke And Carbon Monoxide Detectors In Your Home? Yes Information not available 06/25/2024 At What Age Did You Start Smoking Tobacco? 16 Information not available 10/21/2025 How Much Tobacco Do You Smoke? No Information not available 10/21/2025 Do You Use Sunscreen Routinely? Yes Information not available 06/25/2024 Has Tobacco Cessation Counseling Been Provided? No Information not available 10/29/2024 How Many Years Have You Smoked Tobacco? 20 Information not available 02/20/2024 Sex: Female Functional Status Question Answer Note LastModified by Organizat ion Details LastModified Time Do you use any illicit or recreational drugs? No Information not available 06/25/2024 Do you or have you ever used any other forms of tobacco or nicotine? No Information not available 07/01/2025 What is your level of alcohol consumption? None Information not available 02/20/2024 Are you currently employed? No Information not available 06/25/2024 Are you able to care for yourself independently? Yes Information not available 02/20/2024 Mental Status Question Answer Note LastModified by Organization D etails LastModified Time Do you feel stressed (tense, restless, nervous, or anxious, or unable to sleep at night)? [id number] Information not available 02/20/2024 Family History Relationship Description Onset Age of this Age Resolved Age Notes LastModified by Organization Details LastModified Time Mother Heart disease [email or web address] Not available 2023 14:52:55 Mother Hypertensive disorder [email or web address] Not available 2023 14:53:06 Mother Hypercholest erolemia [email or web address] Not available 2023 14:53:09 Medical History Condition Response Coronary Artery Disease N Other N High Blood Pressure Y Atrial Fibrillation N Thyroid Problems N Kidney or Bladder Problems N GI Problems N Depression N COPD N Blood Clots N Skin Problems N Anemia N Heart Attack (NM) N Anxiety Disorder N Diabetes N Muscle, Joint, or Bone Problems N Seizures/Epilepsy N Acid Reflux (GERD) N Cancer N Stroke N Asthma N Allergies N High Cholesterol Y Hepatitis N Liver Disease N Headaches N Osteoporosis N Heart Failure Y Gynecological HistoryNo gynecological history recorded. Obstetrics History GPAL:G 0 P 0 0 0 0 Immunizations Vaccine Type Date Status Note Provider Nam e and Address Organization Details Recorded Time Influenza, adjuvanted, quadrivalent, PF 2 completed Not Available [facility] 10/21/2025 13:35:48 Influenza, adjuvanted, quadrivalent, PF 3 completed Not Available [facility] 10/21/2025 13:35:48 Influenza, high-dose, trivalent, PF 4 completed Not Available [facility] 10/21/2025 13:35:48 Influenza, high-dose, trivalent, PF 5 completed Not Available [facility] 10/21/2025 13:35:48 Pneumococcal conjugate PCV20, polysaccharide [id number] conjugate, adjuvant, PF 5 completed Tonja Norris MD Attn: Accounting[address] [facility], [place], [address], [facility] 03/04/2025 13:24:11 Past Encounters Encounter ID Performer Location Encounter Start Date Encounter Closed Date Diagnosis/Indication Diagnosis SNOMED-CT Code Diagnosis ICD10 Code Diagnosis IMO Codes Diagnosis Note [id number] Tonja Norris MD [facility] (Adult Med) [address] [place] [phone] 02/20/2024 14:16:50 02/20/2024 15:28:53 Congestive heart failure 49314118 I50.9 Hyperlipidemia 77292471 E78.5 Essential hypertension 73229584 I10 Spinal faina nosis of lumbar region 79479176 M48.202 [id number] MD [facility] (Adult Med) [address] [place] [id number] 06/25/2024 11:02:50 06/25/2024 12:43:45 Overweight 038050299 E66.3 Essential hypertension 12858577 I10 Hyperlipidemia 39352807 E78.5 Screening mammography 24 653454 Z12.31 Screening for malignant neoplasm of colon 891913930 Z12.11 Spinal faina nosis of lumbar region 08631699 M48.061 Nonischemi c congestive cardiomyopathy 3877335581 04 I42.0 [id number] Tonja Norris MD [facility] (Adult Med) [address] [place] [phone] 10/29/2024 10:44:20 10/29/2024 11:52:46 Body mass index 25-29 - overweight 974590148 Z68.27 Overweight 980362718 E66 .3 Essential hypertension 32963576 I10 Hyperlipidemia 83766460 E78.5 Nonischemi c congestive cardiomyopathy 7854327532 04 I42.0 Spinal faina nosis of lumbar region 84901515 M48.718 [id number] MD [facility] (Adult Med) [address] [place] [id number] 03/04/2025 10:46:16 03/04/2025 11:56:14 Essential hypertension 21464233 I10 Hyperlipidemia 95395085 E78.5 Nonischemi c congestive cardiomyopathy 9428466994 04 I42.0 Spinal faina nosis of lumbar region 19986713 M48.061 Administra tion of pneumococcal vaccine 95086298 Z23 [id number] [facility] [address] [place] [phone] 07/01/2025 11:12:46 07/01/2025 12:06:10 Overweight in adulthood with body mass index of 25 or more but less than 30 496801979 Z68.27 026781 Overweight 222115660 E66 .3 Hyperlipidemia 31386413 E78.5 Nonischemi c congestive cardiomyopathy 0039622252 04 I42.0 Essential hypertension 49309960 I10 Spinal faina nosis of lumbar region 29778576 M48.061 Congestive heart failure 73971813 I50.9 Gastroesop hageal reflux disease without esophagitis 206249520 K21.9 [id number] Tonja Norris MD [place] [address] [place] [phone] 07/28/2025 13:52:11 07/28/2025 14:41:55 Overweight 390398650 E66.3 27.1 Pain of le ft knee joint 1874575594 92699 M25.562 [id number] Tonja Norris MD [facility] (Adult Med) [address] [place] [id number] 10/21/2025 13:35:15 10/21/2025 15:00:47 Overweight in adulthood with body mass index of 25 or more but less than 30 445821554 Z68.27 788917 27.3 Hyperlipidemia 37156355 E78.5 Essential hypertension 73459487 I10 Health Concerns Section Related Observation LastModified by Organization Detai ls LastModified Time None Recorded Concern Status LastModified by Organization Details LastModified Time None Recorded Advance Directives Directive Y: Payers Insurance Date Sequence Insurance Name Policy Number Policy Lyons Covered Member ID Lyons Member ID Guarantor Name 10/20/2025 1 [facility] [id number] Ella Ann [id number] Ella Ann 10/20/2025 [facility] (MEDICARE REPLACEMENT/A DVANTAGE - PPO) [id number] Ella Ann [id number] Ella Ann Notes Date Note Type Note Provider Name and Address Organization Details Recorded Time 10/29/2024 text/html still with some residual back pain she has been in contact with the surgeon. Nonischemic cardiomyopathy no PND nor orthopnea hypertension no headache no dizziness dyslipidemia she does try to follow a low-fat diet the best that she can not Tonja Norris MD Attn: Accounting, [address] [facility], [place], [address], [facility] 10/30/2024 22:22:02 03/04/2025 text/html Hypertension no headache or dizziness. Hyperlipidemia she could do better with her fat intake nonischemic congestive cardiomyopathy no PND orthopnea no CARBAJAL no swelling in her legs her spinal stenosis of lumbar region is stable occasionally she will have little bit of pain in her right knee without history of trauma Tonja Norris MD Attn: Accounting, [address] [place], [address], [facility] 03/04/2025 13:25:22 07/01/2025 text/html Heart failure asymptomatic blood pressure looks good she has had no angina or anginal equivalents spinal stenosis of lumbar region she has no pain dyslipidemia tries to follow a low-fat diet her GERD has been stable on the omeprazole Tonja Norris MD Attn: Accounting, [address] [place], [address], [facility], [facility] 07/06/2025 13:27:54 07/28/2025 text/html Step down couple of days ago off a step and developed pain posteriorly in her knee no swelling hurts to walk on it has not been read did not hear a pop did not give out Tonja Norris MD Attn: Accounting, [address] [facility], [place], [id number], [facility], [facility] 07/28/2025 22:24:22 OBGyn Episode No OBEpisode recorded.
--- OUTSIDE RECORDS SUMMARY | 2025-11-10 03:45 | XMS_ITS | Clinical Summary ---
Author Organization [facility] Physician Office Building [address] [place] [phone] Care Team Providers Care Manager Leadership Development Name Role Phone Almas Norris MD Primary Care Provider [phone] Allergies No known active allergies Medications potassium [...] heart failure 04/05/2014 Overview (02/24/2017): CHF NOS Encounters Date Type Department Care Team Description 10/20/2025 Telephone [employer] at [address] [place] [phone] Geremias Matos MD from Last 3 Months Immunizations Immunization Administration Dates Next Due Influenza, [...] on file Legal Sex Female 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 Gender Identity Not on file Sexual Orientation Not on file Obstetrics History Para Term AB IAB SAB Ectopic Multiple Livin g Live Births 2 2 2 Date Outcome GA Total Labor Labor/2nd/3rd Weight Sex Type Anes PTL Becky A1 A5 Name Clin Term Term Last Filed Vital Signs Vital Sign Reading Time Taken Comments Blood Pressure 149/83 03/18/2025 8:19 AM CDT Pulse 82 03/18/2025 8:19 AM CDT Temperature 36.6 C (97.8 F) 01/02/2025 9:56 AM SHEETROCK APPLICATOR Respiratory Rate 18 03/18/2025 8:19 AM CDT Oxygen Saturation 97% 01/02/2025 9:56 AM SHEETROCK APPLICATOR Inhaled Oxygen Concentration - - Weight 60.8 [...] history exists Medical Devices Implanted Type Area Agriculture Extension Specialist Device Identifier Shelf Expiration Date Model / Serial / Lot TYFFON Angio-Seal Vip 6fr Closere Device [id number] - [id number] Implanted:Qty: 1 on 12/19/2023 by Taya Gilliam MD at [facility] Other - see comments TYFFON 09/19/2024 [id number] / / [id number] Procedures Procedure Name Priority Date/Time Associated Diagnosis Comments LIPID PANEL Routine 03/18/2025 9:09 AM CDT Multiple-type hyperlipidemia EGFR Routine 07/01/2024 1:30 PM CDT Essential hypertension HEMOGLOBIN A1C Routine 01/16/2024 10:45 AM SHEETROCK APPLICATOR Diabetes mellitus type II, non insulin dependent [...] 2018. Triglycerides 137 <=149 mg/dL [facility] ([place]) Comment: Interpretive Data Ages < or = [...] on 2018. HDL 44 >=40 mg/dL [facility] [place] ([place]) Comment: Interpretive Data Ages < or = [...] 2018. LDL, calculated 67 <=129 mg/dL [facility] ([place]) Comment: Interpretive Data Ages < or = [...] 2. NCEP Expert Panel. Circulation 2004;110:227 3. Mccormack M et al. ROMEO Cardiol. 2019March 20;5(5):540-548. doi: 10.1001/jamacardio.2020.0013 Current Interpretive Data was last revised on 2024. Non-HDL Cholesterol 91 mg/dL [facility] ([place]) Comment: Interpretive Data Ages < or = [...] CDT Sophie Ackerman NP LAB BLOOD ORDERABLES Fi nal Result [facility] ([place]) 1 [facility] Department [place] [address] * (ABNORMAL) eGFR (07/01/2024 1:30 PM CDT) [...] MD LAB BLOOD ORDERABLES Final Resu lt Performing Organization Address [facility] Co de Phone Number [facility] ([place]) 1 [facility] [place] [address] * (ABNORMAL) Hemoglobin A1c (01/16/2024 10:45 AM SHEETROCK APPLICATOR) Hgb A1C 5.7(H) 4.0 - 5.6 % [facility] [place]) Estimated Average Glucose 117 mg/dL [facility] ([place]) Comment: The ADA recommends reporting an estimated Average Glucose (eAG) with all Hemoglobin A1c results using the equation derived from a study of 507 normal and diabetic adults. Minority populations were underrepresented and children were not included. (Diabetes Care 31:4147-8380, 2008). The eAG is not equivalent to a fasting glucose. Blood 01/16/2024 10:4 5 AM SHEETROCK APPLICATOR 01/16/2024 11:19 AM SHEETROCK APPLICATOR Geremias Matos MD LAB BLOOD ORDERABLES Final Resu lt Performing Organization Address City/[facility]/ZIP Co de Phone Number [facility] ([place]) [address] [facility] [place] [address] from Last 3 Months or Most Recently Relevant to Health Maintenance Insurance [employer] Advance Directives For more information, please contact: [phone] * Full Code (Latest Code Status on File) Date Activated Date Inactivated Comments 01/02/2025 7:19 AM 01/02/2025 2:12 PM * Full Code Date Activated Date Inactivated Comments 01/02/2025 7:19 AM 01/02/2025 7:19 AM * Full Code Date Activated Date Inactivated Comments 12/19/2023 10:11 AM 12/19/2023 5:10 PM Care Teams Manager Leadership Development Relationship Specialty Start Date End Date Almas Norris MD PCP - General Internal Medicine 06/06/22
--- NOTE | 2025-11-10 06:51 | WPDHPUPDATE1 ---
History and Physical Update Update Date/Time: 11/10/25 06:51 History and Physical has been reviewed, including an updated exam of the patient. There are NO changes in the patient's condition. Risks, benefits, and alternatives have been discussed and questions answered. Patient agrees to proceed with procedure. She is aware that I can't change any arthritis.
[2025-11-10] MEDS: KETOROLAC 15 MG/ML VIAL (*BKC) IV PUSH (09:00)
[2025-11-10] MEDS: LACTATED RINGERS 1,000 ML 30 ML IV CONT (09:00)
[2025-11-10] MEDS: ACETAMINOPHEN 500 MG TABLET 1000 MG PO (09:00)
--- NOTE | 2025-11-10 09:10 | WPDANESEPPF ---
Anes - Initial Pre Proc Eval Procedure: Operation Date: 11/10/25 10:00 Proposed Procedures p Left Knee Arthroscopy, Partial Meniscectomy, Proceed As Indicated - Robert Lee MD Date/Time: 11/10/25 09:10 Surgeon: Robert Lee MD Pre Op Diagnosis: left knee medial meniscus tear Patient Data Age: 80 Gender: F Height: 1.5 m Weight: 59.9 kg Allergies Allergy/AdvReac Type Severity Reaction Status Date / Time No Known Allergies Allergy Verified 11/03/25 09:15 Home Medications ?Medication ?Instructions ?Recorded ?Confirmed ?Type atorvastatin 40 mg tablet (Lipitor) 40 mg PO DAILY 09/11/25 11/03/25 History carvedilol 12.5 mg tablet 12.5 mg PO Q12H 09/11/25 11/03/25 History empagliflozin 10 mg tablet 10 mg PO DAILY 09/11/25 11/03/25 History furosemide 40 mg tablet (Lasix) 40 mg PO QAM 09/11/25 11/03/25 History potassium chloride 10 mEq 10 meq PO DAILY 09/11/25 11/03/25 History tablet,extended release (Klor-Con) spironolactone 25 mg tablet 25 mg PO DAILY 09/11/25 11/03/25 History valsartan 80 mg tablet 80 mg PO DAILY 09/11/25 11/03/25 History Patient hx anesthesia problems: none Family hx anesthesia problems: none Results Review: All pre-operative results and documents have been reviewed as part of the pre-operative evaluation. [facility] Family History Family History Mother Heart disease Sibling Cerebrovascular accident Social History Social History Smoking packs per day: 1 Smoking cigarettes per day: 20.0 Years smoked: 10 Smoking pack-years: 10.00 Smoking status: Former smoker Tobacco type: cigarettes Smoking end date: 11/20/64 Alcohol intake: never Substance use: never Lack of Transportation: No Lack of Food: Never True Current Housing: I Have Housing Concerned About Future Housing: No Difficulty Paying Gas/Electric Bills: No Difficulty Paying for Meds: No Currently Unemployed: No Education: High School Diploma/GED Difficulty w/ Childcare or Family Care: No Living arrangements: with family Spiritual care concerns: No Anes - Eval Final PreProcedure Day of Procedure 11/10/25 09:10 Patient weight: normal Lungs: normal air movement Airway: Mallampati scale class II and special considerations (Upper perm bridge. ) Neurological: alert and oriented Last oral intake: >/= 8 hours ASA classification: II Emergent: no Anesthetic plan: proceed Anesthesia type and monitoring: general LMA and standard monitoring Results Review: All pre-operative results and documents have been reviewed as part of the pre-operative evaluation. HTN, hyperlipidemia, active w walking short distances, no cp or sob. Informed Consent: The patient's anesthetic plan and its attendant risks and benefits were discussed with the patient/family/POA. Questions were solicited and answers provided to the satisfaction of the patient/family/POA.
[2025-11-10] MEDS: ceFAZolin 2 GM in SODIUM CHLORIDE 0.9% IV 50 ML 100 ML IVPB (10:19)
[2025-11-10] MEDS: LIDO 1%/EPINEPHRINE 1:100,000 20 ML VIAL 30 ML INFILTRATE (10:20)
--- NOTE | 2025-11-10 10:31 | W.PM.PROC2 ---
Procedure Note - Detailed Date of Procedure 11/10/25 Pre-op Diagnosis Left knee medial meniscus tear Post-op Diagnosis Same Procedure Performed LEFT knee arthroscopy with partial meniscectomy Surgeon Robert Lee MD Anesthesia General Indications Pain, Locking and Catching Description of Procedure Patient brought to operating room # 7. An anesthetic was administered. The knee was sterilely prepped and draped in the usual manner. Standard portals were used. Superior medial portal was used for the outflow cannula, inferior lateral portal was used for the scope, inferior medial portal was used for the instruments. Arthroscopy was performed, the patellar femoral joint degenerative changes. The medial compartment showed a complex tear. The lateral compartment showed fraying. The ACL was intact. Using baskets and lois the meniscal tear was trimmed back to a stable base so the nothing further could be pulled into the joint. Any loose or delaminated fragments were gently trimmed to a stable base. At this point the instruments were withdrawn, sutures placed and patient left the operating room in satisfactory condition. Estimated Blood Loss 20 Drains No Packing No Pathology None sent Complications No immediate complications Condition Stable Disposition PACU [facility] Billing Surgery - Charge Forward: Surgery Billing ([id number] [facility])
[2025-11-10] MEDS: HYDROcodone/acetaminophen (*CRX) 5-325 MG TABLET 1 TAB PO (11:56)
== END 2025-11-10 12:45 | disposition home or self-care (01) ==
PROVIDERS: PCP Internal Medicine; Visit Provider Orthopaedic Surgery
PROC: (CPT 29870; principal; 2025-11-10 10:00)
DX: S83.232A Complex tear of medial meniscus, current injury, left knee, initial encounter (principal); M17.12 Unilateral primary osteoarthritis, left knee; X58.XXXA Exposure to other specified factors, initial encounter; Z87.891 Personal history of nicotine dependence
CPT/HCPCS: 29881; J0690; A9270; J1885; J2003; J2004; J2405; J2704; J3010; J7120